=== PATIENT | female | born 2005 | race Two or more races ===

== ENCOUNTER 2025-03-30 10:33 | Outpatient (OUT) | payer MEDICAID, SELFPAY ==
[2025-03-30 12:47] LABS: Hematocrit 32.8 % (36.0-48.0); Hemoglobin 11.1 g/dL (12.0-16.0); Immature Granulocytes Abs Auto 0.03 10^3/uL (0.00-0.03); Immature Granulocytes Pct Auto 0.4 % (0.0-0.5); Lymphocytes Absolute Auto 2.0 10^3/uL (1.2-3.8); Mean Corpuscular HGB Conc 33.8 g/dL (29.9-35.2); Mean Corpuscular Hemoglobin 29.5 pg (26.7-34.0); Mean Corpuscular Volume 87.2 fL (81.0-99.0); Platelet Count 308 10^3/uL (150-450); Red Blood Count 3.76 10^6/uL (4.20-5.40); White Blood Count 8.1 10^3/uL (4.0-11.0)
[2025-03-30 13:01] LABS: Glucose 1 Hour 96 mg/dL (<130)
== END 2025-03-30 10:34 | disposition home or self-care (01) ==
LOC: LAB 10:38
PROVIDERS: PCP Internal Medicine; Visit Provider Physician Assistant
DX: Z13.1 Encounter for screening for diabetes mellitus (principal)
CPT/HCPCS: 36415; 82950; 85025

== ENCOUNTER 2025-04-10 15:33 | Outpatient (OUT) | payer MEDICAID, SELFPAY ==
[2025-04-10 16:25] LABS: Cannabinoid Screen Urine NEGATIVE (NEGATIVE); Methamphetamines Screen Urine NEGATIVE (NEGATIVE); Tricyclic Antidepressant Urine NEGATIVE (NEGATIVE)
[2025-04-11 05:07] LABS: Rubella Antibodies, IgG 1.76 index (Immune >0.99)
[2025-04-11 12:09] LABS: Rapid Plasma Reagin, Quant Non Reactive titer (NonRea<1:1)
== END 2025-04-10 15:34 | disposition home or self-care (01) ==
PROVIDERS: PCP Internal Medicine; Visit Provider Obstetrics & Gynecology
DX: Z34.01 Encounter for supervision of normal first pregnancy, first trimester (principal); N92.6 Irregular menstruation, unspecified
CPT/HCPCS: 36415; 80307; 83036; 86592; 86762; 86803; 86850; 86900; 86901; 87086; 87340; 87389

== ENCOUNTER 2025-06-01 18:53 | Outpatient (REF) | payer MEDICAID, SELFPAY ==
--- OUTSIDE RECORDS SUMMARY | 2025-05-24 10:50 | XMS_ITS | Encounter Summary ---
Author Organization [facility] Address [address] [place] [address] Care Team Providers Care Chief Wheelage Clerk Name Role Phone Anthony Stauffer MD Primary Care Provider [phone] Reason for Visit * ReasonCommentsRoutine Visit Encounter Details DateTypeDepartmentCare Team (Latest Contact Info)Sljzhddivqc81/03/2025 10:50 AM ESTRoutine [facility] [address] [place] [address] Mega Hogan DO [address] [place] [address] Intractable headache, unspecified chronicity pattern, unspecified headache type (Primary Dx); Third trimester ([facility]); 35 weeks gestation of ([facility]) Social History Tobacco UseTypesPacks/DayYears UsedDateSmoking Tobacco: Never Assessed Estimated Date of IylwvaanHdleylfoSgl98/06/2026ased on UltrasoundSex and Gender InformationValueDate RecordedSex Assigned at BirthNot on fileLegal SexFemale 10/13/2023 11:10 AM EDTGender IdentityNot on fileSexual OrientationNot on file documented as of this encounter Last Filed Vital Signs Vital SignReadingTime TakenCommentsBlood Ulyljahe001/7405/24/2025 11:02 AM EST Pulse--Temperature--Respiratory Rate--Oxygen Saturation--Inhaled Oxygen Concentration--Lzqkqt24.7 kg (189 lb)05/24/2025 11:02 AM ESTHeight--Body Mass Index29.606 2:25 PM EDTdocumented in this encounter Progress Notes * Tiara Escamilla NP - 05/24/2025 10:50 AM EST Reason for Appointment: Patient ID: Juliet Arthur is a 19 y.o. female who presents for Routine Visit Patient presents today for Return OB appointment. MEDICATIONS Current Outpatient Medications Medication Instructions metoclopramide (REGLAN) 10 mg, Oral, 3 times daily before meals, Take 1 tablet by mouth 30 minutes prior to meals 3 times daily as needed for nausea. ALLERGIES No Known Allergies PROBLEMS Active Ambulatory Problems Diagnosis Date Noted No Active Ambulatory Problems Resolved Ambulatory Problems Diagnosis Date Noted No Resolved Ambulatory Problems No Additional Past Medical History HISTORY PAST MEDICAL HISTORY SOCIAL HISTORY No past medical history on file. Social History Tobacco Use Smoking status: Not on file Smokeless tobacco: Not on file Substance Use Topics Alcohol use: Not on file Drug use: Not on file FAMILY HISTORY No family history on file. SURGICAL HISTORY History reviewed. No pertinent surgical history. REVIEW OF SYSTEMS Review of Systems: Review of Systems Constitutional: Negative. HENT: Negative. Intermittent headache since becoming Eyes: Negative. Respiratory: Negative. Cardiovascular: Negative. Gastrointestinal: Negative. Genitourinary: Negative. Musculoskeletal: Negative. Skin: Negative. Neurological: Negative. Psychiatric/Behavioral: Negative. Hematological: Negative. Endocrine: Negative. Allergic/Immunologic: Negative. OBJECTIVE Objective: Physical Exam Constitutional: Appearance: Normal appearance. She is well-developed. Cardiovascular: Rate and Rhythm: Normal rate and regular rhythm. Pulmonary: Effort: Pulmonary effort is normal. Breath sounds: Normal breath sounds. Abdominal: General: Bowel sounds are normal. There is no distension. Palpations: Abdomen is soft. Tenderness: There is no abdominal tenderness. There is no guarding or rebound. Musculoskeletal: General: No swelling. Normal range of motion. Right lower leg: No edema. Left lower leg: No edema. Neurological: Mental Status: She is alert and oriented to person, place, and time. Skin: General: Skin is warm and dry. Psychiatric: Mood and Affect: Mood normal. Behavior: Behavior normal. Vitals and nursing note reviewed. Exam conducted with a jack winder present. Vitals: Estimated body mass index is 29.6 kg/m?? as calculated from the following: Height as of 12/08/24: 5' 7 . Weight as of this encounter: 189 lb. BP: 128/74 Patient's last menstrual period was 08/28/2024. Assessment/Plan ICD-10-CM 1. Third trimester ([facility]) Z34.93 2. 35 weeks gestation of ([facility]) Z3A.35 POCT urinalysis dipstick manually resulted Assessment/Plan Return OB: Patient presents today for a routine obstetrics appointment. Patient is currently 35w1d . Patient states she is doing well but has complaints of being tired due to current . Patient has verbalizes frequent movement. labor precautions was discussed/given and patient was instructed to perform kick counts three times a day. Orders Placed This Encounter Procedures POCT urinalysis dipstick manually resulted Follow Up: Patient is to return to office in 1 week for routine OB appointment. Documented by Tiara Escamilla NP on behalf of: Mega Hogan DO documented in this encounter Plan of Treatment DateTypeDepartmentCare Team (Latest Contact Info)Xabnwilzkzp65/15/2025 3:10 PM ESTRoutine [facility] [address] [place] [address] Mega Hogan DO [address] [place], [place] [id number] documented as of this encounter Procedures Procedure NamePriorityDate/TimeAssociated DiagnosisCommentsPOCT URINALYSIS IJGOFRFNVztrujs40/03/2025 11:03 AM EST 35 weeks gestation of ([facility]) documented in this encounter Results * POCT urinalysis dipstick manually resulted (05/24/2025 11:03 AM EST)Component ValueRef RangeTest MethodAnalysis TimePerformed AtPathologist SignatureColor, UAYellowClarity, UAClearGlucose, UANegativeNegative - 2000(110) ++++ mg/dL Bilirubin, UANegativeNegative - 4(70) +++ mg/dLKetones, UANegativeNegative - 160(16) ++++ mg/dLSpec Grav, UA1.0101 - 1.03Blood, UANegativeNegative - 50 Cristofer/mcLpH, UA6.55 - 9Protein, UANegativeNegative - 2000(20) ++++ mg/dL Urobilinogen, UA1.00.2 - 12 mg/dLLeukocytes, UANegativeNegative - 500+++ Eladio/mcLNitrite, UANegativeNegative - PositiveSpecimen (Source)Anatomical Location / LateralityCollection Method / VolumeCollection TimeReceived Time Urine05/24/2025 11:03 AM EST Narrative Authorizing ProviderResult TypeResult StatusCorey Samira DOPOINT OF CARE TEST ENTER/EDIT ORDERABLESFinal Result documented in this encounter Visit Diagnoses Diagnosis Intractable headache, unspecified chronicity pattern, unspecified headache type- Primary Third trimester ([facility]) state, incidental 35 weeks gestation of ([facility]) documented in this encounter Care Teams Team MemberRelationshipSpecialtyStart DateEnd Date Anthony Stauffer MD [address] [place] [address], [address] [place] [address] PCP - GeneralFamily Medicine12/08/24documented as of this encounter
--- OUTSIDE RECORDS SUMMARY | 2025-06-01 15:20 | XMS_ITS | Encounter Summary ---
Author Organization [facility] Address [address] [place] [address] Care Team Providers Care Press Operator Automatic Name Role Phone Anthony Stauffer MD Primary Care Provider [phone] Reason for Visit * ReasonCommentsRoutine Visit Encounter Details DateTypeDepartmentCare Team (Latest Contact Info)Agzerpopqdw02/11/2025 3:20 PM ESTRoutine [facility] [address] [address] Tiara Escamilla NP [address] [place] [address] Third trimester ([facility]); 36 weeks gestation of ([facility]); Nausea Social History Tobacco UseTypesPacks/DayYears UsedDateSmoking Tobacco: Never Assessed Estimated Date of TblshbkgJheexpaxYee70/06/2026ased on UltrasoundSex and Gender InformationValueDate RecordedSex Assigned at BirthNot on fileLegal SexFemale 10/13/2023 11:10 AM EDTGender IdentityNot on fileSexual OrientationNot on file documented as of this encounter Last Filed Vital Signs Vital SignReadingTime TakenCommentsBlood Bxkkwzsz022/6006/01/2025 3:47 PM EST Pulse--Temperature--Respiratory Rate--Oxygen Saturation--Inhaled Oxygen Concentration--Psdbkk48.1 kg (189 lb 12 oz)06/01/2025 3:47 PM ESTHeight--Body Mass Index29.72012/08/2024 2:25 PM EDTdocumented in this encounter Progress Notes * Tiara Escamilla NP - 06/01/2025 3:20 PM EST Reason for Appointment: Patient ID: Juliet Arthur is a 19 y.o. female who presents for Routine Visit Patient presents today for Return OB appointment. MEDICATIONS Current Outpatient Medications Medication Instructions magnesium oxide (MAG-OX) 400 mg, Oral, Daily metoclopramide (REGLAN) 10 mg, Oral, 3 times [...] No family history on file. SURGICAL HISTORY No past surgical history on file. REVIEW OF SYSTEMS Review of Systems: Review of Systems Constitutional: Negative. HENT: Negative. Eyes: Negative. Respiratory: Negative. Cardiovascular: Negative. Gastrointestinal: Negative. Genitourinary: Negative. Musculoskeletal: Negative. Skin: Negative. Neurological: Negative. All other systems reviewed and are negative. Hematological: Negative. Endocrine: Negative. Allergic/Immunologic: Negative. OBJECTIVE Objective: Physical Exam Constitutional: Appearance: Normal appearance. She is well-developed. Genitourinary: Vulva normal. Cardiovascular: Rate and Rhythm: Normal rate and [...] nursing note reviewed. Exam conducted with a golf course mechanic present. Vitals: Estimated body mass index is 29.72 kg/m?? as calculated from the following: Height as of 12/08/24: 5' 7 . Weight as of this encounter: 189 lb 12 oz. BP: 120/60 Patient's last menstrual period was 08/28/2024. Assessment/Plan ICD-10-CM 1. Third trimester ([facility]) Z34.93 POCT urinalysis dipstick manually resulted CULTURE, GROUP B STREP WITH SUSCEPTIBLITY CULTURE, GROUP B STREP WITH SUSCEPTIBLITY 2. 36 weeks gestation of ([facility]) Z3A.36 3. Nausea R11.0 metoclopramide (Reglan) 10 MG tablet Assessment/Plan Return OB: Patient presents today for a routine obstetrics appointment. Patient is currently 36w2d . Patient states she is doing well but has complaints of being tired due to current . Patient has verbalizes frequent movement. labor precautions was discussed/given and patient was instructed to perform kick counts three times a day. Orders Placed This Encounter Procedures CULTURE, GROUP B STREP WITH SUSCEPTIBLITY POCT urinalysis dipstick manually resulted Follow Up: Patient is to return to office in 2 week for routine OB appointment. Documented by Tiara Escamilla NP on behalf of: Tiara Escamilla NP documented in this encounter Plan of Treatment DateTypeDepartmentCare Team (Latest Contact Info)Bqxqrufaagm40/15/2025 3:10 PM ESTRoutine [facility] [address] [phone] Mega Hogan, [address] [place] [address] NameTypePriorityAssociated DiagnosesOrder ScheduleCULTURE, GROUP B STREP WITH SUSCEPTIBLITYLabRoutine Third trimester ([facility]) Expected: 06/01/2025, Expires: 06/01/2026documented as of this encounter Procedures Procedure NamePriorityDate/TimeAssociated DiagnosisCommentsPOCT URINALYSIS PXQFLVVJKjynsbx84/11/2025 4:11 PM EST Third trimester ([facility]) documented in this encounter Results * (ABNORMAL) POCT urinalysis dipstick manually resulted (06/01/2025 4:11 PM EST) ComponentValueRef RangeTest MethodAnalysis TimePerformed AtPathologist SignatureColor, UAYellowClarity, UAClearGlucose, UANegativeNegative - 2000(110) ++++ mg/dLBilirubin, UANegativeNegative - 4(70) +++ mg/dLKetones, UA NegativeNegative - 160(16) ++++ mg/dLSpec Grav, UA1.0151 - 1.03Blood, UA NegativeNegative - 50 Cristofer/mcLpH, UA6.05 - 9Protein, UAPositiveNegative - 2000(20) ++++ mg/dLComment:TraceUrobilinogen, UA0.20.2 - 12 mg/dLLeukocytes, UANegativeNegative - 500+++ Eladio/mcLNitrite, UANegativeNegative - Positive Specimen (Source)Anatomical Location / LateralityCollection Method / Volume Collection TimeReceived SgdcYkgtd77/11/2025 4:11 PM EST Narrative Authorizing ProviderResult TypeResult StatusTiara Escamilla NPPOINT OF CARE TEST ENTER/EDIT ORDERABLESFinal Result documented in this encounter Visit Diagnoses Diagnosis Third trimester ([facility]) state, incidental 36 weeks gestation of ([facility]) Nausea Nausea alone documented in this encounter Care Teams Team MemberRelationshipSpecialtyStart DateEnd Date Anthony Stauffer MD [address] [place] [address], [address] [place] [address] PCP - GeneralFamily Medicine12/08/24documented as of this encounter
--- OUTSIDE RECORDS SUMMARY | 2025-06-01 18:58 | XMS_ITS | Clinical Summary ---
Author Organization [facility] [employer] [facility] tem Address [id number] [address] [place] [address] Care Team Providers Care Staff Combat Information Center Officer Name Role Phone Anthony Stauffer MD Primary Care Provider [phone] Allergies No known active allergies Medications MedicationSigDispense QuantityRefillsLast FilledStart DateEnd DateStatus norethindrone-e.estradioL-iron (07/11) 1 mg-20 mcg (21)/75 mg (7) per tablet Take 1 tablet by mouth in the morning. 28 tablet 11107/25/2023ctive 115/iron/folic acid ( 19 ORAL) Take by mouth.Active Active Problems ProblemNoted DateDiagnosed DateHSV (herpes simplex virus) anogenital infection 04/21/2024 Overview (04/21/2024): 04/20/24 (+) HSV 1 TonsillitisEstimated Date of BgmcyjygXdserfzeVrp30/06/2026ased on last menstrual period of 09/20/2024 Encounters DateTypeDepartmentCare YazuLdhocnczstj07/11/2025 2:13 PM EDT - 04/01/2025 5:11 PM EDTHospital Encounter [facility] [address] [place] [phone] Alexis Stanford MD Discharge Disposition: Home04/01/2025 - 04/01/2025 2:10 PM EDTEmergency [facility] [address] [place] [address] Discharge Disposition: ED Dismiss - Diverted Elsewherefrom Last 3 Months Social History Tobacco UseTypesPacks/DayYears UsedDateSmoking Tobacco: NeverSmokeless Tobacco: Never Tobacco Cessation:Counseling Given: Not Answered Alcohol UseStandard Drinks/WeekCommentsNever0 (1 standard drink = 0.6 oz pure alcohol)[facility] UtilitiesAnswerDate RecordedIn the past 12 months has the [employer], [employer], oil, or water [employer] threatened to shut off services in your home?No 5AUDIT-CAnswerDate RecordedQ1: How often do you have a drink containing alcohol?Never05/08/2020Average Number of DrinksNot on file05/08/2020Frequency of Binge DrinkingNot on file05/08/2020PHQ-2AnswerDate RecordedTotal Score0 2PRAPARE - TransportationAnswerDate RecordedIn the past 12 months, has lack of transportation kept you from medical appointments or from getting medications?No04/01/2025In the past 12 months, has lack of transportation kept you from meetings, work, or from getting things needed for daily living?No 04/01/2025Housing InstabilityAnswerDate RecordedAre you worried or concerned that in the next two months you may not have stable housing that you own, rent or stay in as a part of a household?No5ChildcareAnswerDate Recorded LptwxkxamMborwkq29/10/2020EmploymentAnswerDate RecordedEmploymentUnknown 05/01/2020Hunger ScreeningAnswerDate RecordedWithin the past 12 months we worried whether our food would run out before we got money to buy more.Never True04/01/2025Within the past 12 months the food we bought just didn't last and we didn't have money to get more.Never True04/01/2025Purpose - LifeAnswerDate RecordedPurpose and direction in xlgtXvarlik53/02/2021Estimated Date of UtdklihyJmvvmudgRsz23/06/2026Based on last menstrual period of 09/20/2024Sex and Gender InformationValueDate RecordedSex Assigned at BirthNot on fileLegal Sex Cxegmo8701/23/2015 12:51 PM EDTGender IdentityNot on fileSexual OrientationNot on file Last Filed Vital Signs Vital SignReadingTime TakenCommentsBlood Ytbdnwpm381/511 2:13 PM EDT Xkgoe63690/11/2025 2:13 PM HUDZfxngedfppp97.9 ??C (98.5 ??F)04/01/2025 2:13 PM EDTRespiratory Kkve6922 2:13 PM EDTOxygen Qcabbovngi440%04/01/2025 2:13 PM EDTInhaled Oxygen Concentration--Xfrnlg08.9 kg (138 lb 10.7 oz)04/01/2025 2:27 PM HQKQivgvn442.2 cm (5' 7 )04/01/2025 2:27 PM EDTBody Mass Index21.72 04/01/2025 2:27 PM EDT Plan of Treatment Health MaintenanceDue DateLast DoneCommentsChlamydia Iwzstvbic08/11/2005 Depression Pqxzouqne06/11/2017Influenza Vdrxelv2002/20/2025RSV ( or age 60+ yrs) (1 - Risk 1-dose series)05/02/2025Tobacco Emuimmtxu99/20/2025 05/11/2024dult BMI Dnagojylg03DTaP,Tdap and Td Vaccines (6 - Td or Tdap), 03/09/2009, 01/15/2005, Additional history exists Medical Devices Not on file Procedures Procedure NamePriorityDate/TimeAssociated DiagnosisCommentsCBC WITH AUTO GGHPTQPJQWRWOPXY93/11/2025 3:24 PM EDT BHIJMCLVVRFCCU63/11/2025 3:15 PM EDT URINE LGKWKPDJsqnegu94/11/2025 3:15 PM EDT from Last 3 Months Results * (ABNORMAL) CBC auto differential (04/01/2025 3:24 PM EDT)ComponentValueRef RangeTest MethodAnalysis TimePerformed AtPathologist SignatureWBC8.14 - 11 x10E9/L1 3:35 PM EDTPMCCULLOUGH-HYDE MEMORIAL HOSPITALRBC Count4.06 3.8 - 5.2 X10E12/L1 3:35 PM EDSCCI [facility] Qbabdnofkg72.6(L)11.7 - 15.5 g/dL04/01/2025 3:35 PM EDTPMCCULLOUGH-HYDE MEMORIAL HOSPITALHematocrit34.7(L)35 - 47 %04/01/2025 3:35 PM EDTPMCCULLOUGH-HYDE MEMORIAL HOSPITALMCV8680 - 100 fL04/01/2025 3:35 PM EDSCCI HOSPITAL LIMAMCH28.727 - 34 pg04/01/2025 3:35 PM EDSCCI HOSPITAL LIMAMCHC33.532 - 36 g/dL04/01/2025 3:35 PM EDTPMCCULLOUGH-HYDE MEMORIAL HOSPITALRDW12.511.5 - 15 %04/01/2025 3:35 PM EDSCCI HOSPITAL LIMAPlatelet Gjpbl538850 - 450 X10E9/L1 3:35 PM EDTPMCCULLOUGH-HYDE MEMORIAL HOSPITALMPV8.17 - 12 fL04/01/2025 3:35 PM EDT [facility]Neutrophils %68.8%04/01/2025 3:35 PM EDT [facility]ITALLymphocytes %24.6%04/01/2025 3:35 PM EDT [facility]ITALMonocytes %6.0%04/01/2025 3:35 PM EDT [facility]ITALEosinophils %0.4%04/01/2025 3:35 PM EDT [facility]ITALBasophils %0.2%04/01/2025 3:35 PM EDT [facility]ITALNeutrophils Absolute (A)5.51.5 - 6.6 10*3/uL04/01/2025 3:35 PM EDTPMCCULLOUGH-HYDE MEMORIAL HOSPITALLymphocytes Absolute2.01.0 - 3.5 10*3/uL04/01/2025 3:35 PM EDTPMCCULLOUGH-HYDE MEMORIAL HOSPITALMonocytes Absolute0.50.0 - 0.9 10*3/uL04/01/2025 3:35 PM EDTPMCCULLOUGH-HYDE MEMORIAL HOSPITALEosinophils Absolute0.00.0 - 0.4 10*3/uL04/01/2025 3:35 PM EDTPMCCULLOUGH-HYDE MEMORIAL HOSPITALBasophils Absolute0.00.0 - 0.2 10*3/uL04/01/2025 3:35 PM EDSCCI HOSPITAL LIMADifferential TypeAUTOMATED DZOKDBLJXGGW11/11/2025 3:35 PM EDMERCY [facility]ALTH TIFFIN HOSPITALpecimen (Source)Anatomical Location / LateralityCollection Method / VolumeCollection TimeReceived TimeBloodVenous blood / UnknownVenipuncture / Ysiwckp2904/01/2025 3:24 PM EDT1 3:27 PM EDT Narrative Authorizing ProviderResult TypeResult StatusTibjose Stanford MDLAB BLOOD ORDERABLESFinal ResultPerforming OrganizationAddressCity/State/ZIP CodePhone Number [facility] [address] [place] [address], * Urinalysis (04/01/2025 3:15 PM EDT)ComponentValueRef RangeTest MethodAnalysis TimePerformed AtPathologist DpzujyhwaETYIASviomnXcorwa71/11/2025 3:33 PM EDT [facility]ITALTURBIDITYClearClear04/01/2025 3:33 PM EDT [facility]ITALPECIFIC GRAVITY1.0151.003 - 1.035 04/01/2025 3:33 PM EDSCCI HOSPITAL LIMANITRITENegative Ngmpzogf84/11/2025 3:33 PM [facility]ITALPH,URINE8.5 5.0 - 8.510 3:33 PM EDSCCI HOSPITAL LIMALEUKOCYTE DJUEMMKAGspqbpcgSsjzdgfc76/11/2025 3:33 PM EDTPMCCULLOUGH-HYDE MEMORIAL HOSPITALPROTEINNegativeNegative04/01/2025 3:33 PM EDTPMCCULLOUGH-HYDE MEMORIAL HOSPITALKETONES (URINE)GqpzmwwbPoveahzt03/11/2025 3:33 PM EDT [facility]ITALUROBILINOGEN0.2 eu/dL0.2 eu/dL, 1.0 eu/dL 04/01/2025 3:33 PM EDTPMCCULLOUGH-HYDE MEMORIAL HOSPITALBILIRUBIN (URINE) NfimdfxyIozauvgc04/11/2025 3:33 PM EDSCCI [facility]OS[facility]ITAL [facility] BLOOD/ZCDPddkcaqbFqvrjjdx17/11/2025 3:33 PM EDSCCI HOSPITAL LIMAGLUCOSE (URINE)NegativeNegative, 250 mg/dL04/01/2025 3:33 PM EDT [facility]ITALpecimen (Source)Anatomical Location / LateralityCollection Method / VolumeCollection TimeReceived TimeUrineUrine specimen collection, clean catch / Oyliaau3304/01/2025 3:15 PM EDT1 3:28 PM EDT Narrative Authorizing ProviderResult TypeResult Trav Stanford MDURINE ORDERABLES Final ResultPerforming OrganizationAddressCity/State/ZIP CodePhone Number [facility] [address] [place] [address], [place] * Urine Culture Urine, Clean Catch Midstream (04/01/2025 3:15 PM EDT)Component ValueRef RangeTest MethodAnalysis TimePerformed AtPathologist SignatureCULTURE XXKSQIH84-159,000 ORGANISMS/mL NORMAL UROGENITAL FLORA04/02/2025 9:14 PM EDT [facility] LABORATORYSpecimen (Source)Anatomical Location / LateralityCollection Method / VolumeCollection TimeReceived TimeUrineUrine specimen collection, clean catch / Upboxtx8304/01/2025 3:15 PM EDT1 3:28 PM EDT Narrative Authorizing ProviderResult TypeResult Trav Stanford MDMICROBIOLOGY - GENERAL ORDERABLESFinal ResultPerforming OrganizationAddressCity/State/ZIP Code Phone Number [facility] [address] [place] [address], [place] [phone] from Last 3 Months Insurance Care Teams Team MemberRelationshipSpecialtyStart DateEnd Date Anthony Stauffer MD [address] [place] [address], [address] [place] [address] PCP - LauuwomNnkklbpxdj34/31/23
--- OUTSIDE RECORDS SUMMARY | 2025-06-01 18:59 | XMS_ITS | Encounter Summary ---
Author Organization [facility] Address [address] [place] [address] Care Team Providers Care Carpenter Refrigerator Name Role Phone Anthony Stauffer MD Primary Care Provider [phone] Encounter Details DateTypeDepartmentCare Team (Latest Contact Info)Ygqlcipokgl07/11/2025Travel Social History Tobacco UseTypesPacks/DayYears UsedDateSmoking Tobacco: Never Assessed Estimated Date of DodecwsgHtjlmjnhUpv16/06/2026Based on UltrasoundSex and Gender InformationValueDate RecordedSex Assigned at BirthNot on fileLegal SexFemale 10/13/2023 11:10 AM EDTGender IdentityNot on fileSexual OrientationNot on file documented as of this encounter Plan of Treatment DateTypeDepartmentCare Team (Latest Contact Info)Dkqmtiydnyv84/15/2025 3:10 PM ESTRoutine [facility] [address] [facility] [place] [phone] Mega Hogan DO [address] [facility] [address] [place], [facility]11 documented as of this encounter Visit Diagnoses Not on filedocumented in this encounter Care Teams Team MemberRelationshipSpecialtyStart DateEnd Date Anthony Stauffer MD [address] [place] [address], [address] [place] [id number] PCP - GeneralFamily Medicine12/08/24documented as of this encounter
--- OUTSIDE RECORDS SUMMARY | 2025-06-01 18:59 | XMS_ITS | Encounter Summary ---
Author Organization [facility] Address [address] [place] [address] Care Team Providers Care Filter Press Tender Head Name Role Phone Anthony Stauffer MD Primary Care Provider [phone] Encounter Details DateTypeDepartmentCare Team (Latest Contact Info)Lgzfnvljhwa80/11/2025amboo flowsheet RICHARD SALOMON [address] [place] [address] Tiara Escamilla, FLIGHT TEACHER [address] [place] [address] Social History Tobacco UseTypesPacks/DayYears UsedDateSmoking Tobacco: Never Assessed Estimated Date of MwtubffhWrmtixgtMxw64/06/2026Based on UltrasoundSex and Gender InformationValueDate RecordedSex Assigned at BirthNot on fileLegal SexFemale 10/13/2023 11:10 AM EDTGender IdentityNot on fileSexual OrientationNot on file documented as of this encounter Plan of Treatment DateTypeDepartmentCare Team (Latest Contact Info)Nuzzidkgelf27/15/2025 3:10 PM ESTRoutine NOMMary [facility]ON [address] [place] [address] Mega Hogan DO [address] [facility] [address] [place], [place] [phone] documented as of this encounter Visit Diagnoses Not on filedocumented in this encounter Care Teams Team MemberRelationshipSpecialtyStart DateEnd Date Anthony Stauffer MD [address] [place] [address], [address] [place] [address] PCP - GeneralFamily Medicine12/08/24documented as of this encounter
--- OUTSIDE RECORDS SUMMARY | 2025-06-01 18:59 | XMS_ITS | Encounter Summary ---
Author Organization [facility] Address [address] [place] [address] Care Team Providers Care Medical Auditor Name Role Phone Anthony Stauffer MD Primary Care Provider [phone] Encounter Details DateTypeDepartmentCare Team (Latest Contact Info)Shfquzjnvys36/03/2025amboo flowsheet NOM[facility] SALOMON [address] [place] [address] [place] [phone] Mega Hogan DO [address] [place] [address] [address] [place], [place] [id number] Social History Tobacco UseTypesPacks/DayYears UsedDateSmoking Tobacco: Never Assessed Estimated Date of DgkaehygEijdbcakWzr72/06/2026Based on UltrasoundSex and Gender InformationValueDate RecordedSex Assigned at BirthNot on fileLegal SexFemale 10/13/2023 11:10 AM EDTGender IdentityNot on fileSexual OrientationNot on file documented as of this encounter Plan of Treatment DateTypeDepartmentCare Team (Latest Contact Info)Iitxmqxmwow21/15/2025 3:10 PM ESTRoutine [facility] [address] [facility] [place] [phone] Mega Hogan DO [facility] [place], [place] [id number] documented as of this encounter Visit Diagnoses Not on filedocumented in this encounter Care Teams Team MemberRelationshipSpecialtyStart DateEnd Date Anthony Stauffer MD [address] [place] [address], [address] [place] [address] PCP - GeneralFamily Medicine12/08/24documented as of this encounter
--- OUTSIDE RECORDS SUMMARY | 2025-06-01 19:01 | XMS_ITS | Clinical Summary ---
Author Organization [facility] Address [address] [place] [address] Care Team Providers Care Staff Forester Name Role Phone Unavailable Primary Care Provider Unavailabl e Social History Tobacco UseTypesPacks/DayYears UsedDateSmoking Tobacco: Never Assessed CommentsUnknownSex and Gender InformationValueDate RecordedSex Assigned at Not on fileLegal HsmVabggc03/30/2022 12:27 AM EDTGender IdentityNot on file Sexual OrientationNot on file Plan of Treatment Not on file
--- OUTSIDE RECORDS SUMMARY | 2025-06-01 19:01 | XMS_ITS | Clinical Summary ---
Author Organization [facility] Healthcare Address [address] [place] [address] Care Team Providers Care Detective [employer] Name Role Phone Anthony Stauffer MD Primary Care Provider [phone] Allergies No known active allergies Medications MedicationSigDispense QuantityRefillsLast FilledStart DateEnd DateStatus magnesium oxide (Mag-Ox) 400 MG tablet Indications:Intractable headache, unspecified chronicity pattern, unspecified headache typeTake 1 tablet (400 mg) by mouth Daily 30 tablet ctive metoclopramide (Reglan) 10 MG tablet Indications:NauseaTake 1 tablet (10 mg) by mouth in the morning and 1 tablet (10 mg) at noon and 1 tablet (10 mg) in the evening. Take before meals. Take 1 tablet by mouth 30 minutes prior to meals 3 times daily as needed for nausea. 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 Take before meals. Take 1 tablet by mouth 30 minutes prior to meals 3 times daily as needed for nausea. 90 tablet Discontinued(Reorder) Encounters DateTypeDepartmentCare QbtpZcazcbtroud09/11/2025 3:20 PM ESTRoutine NOMS Cherie Willoughby [facility] [place] [address] Tiara Escamilla NP Third trimester ([facility]); 36 weeks gestation of ([facility]); Huuubu4106/01/2025amboo flowsheet [facility] Cherie Willoughby [facility] [place] [address] Tiara Escamilla NP 06/01/20252576Odzohk98/03/2025 10:50 AM ESTRoutine N[facility] Cherie Willoughby [facility] [place] [address] Mega Hogan DO Intractable headache, unspecified chronicity pattern, unspecified headache type (Primary Dx); Third trimester ([facility]); 35 weeks gestation of ([facility])05/24/2025amboo flowsheet N[facility] Cherie Willoughby [facility] [place] [address] Mega Hogan DO 05/04/2025 2:50 PM ESTRoutine N[facility] Cherie Willoughby [facility] [place] [address] Tiara Escamilla NP Nausea (Primary Dx)05/04/2025 2:30 PM ESTAncillary Procedure N[facility] Cherie Willoughby [facility] [place] [address] size inconsistent with dates ([facility])04/18/2025bstract [facility] [place] [facility] [address] [place] [address] Lisy Shi LPN 04/17/2025 10:00 AM EDTRoutine NOM[facility] [address] [facility] [place] [address] Mega Hogan, DO size inconsistent with dates ([facility]) (Primary Dx); Third trimester ([facility]); 29 weeks gestation of ([facility]); PCR positive for herpes simplex virus type 1 (HSV-1) DNA04/17/2025bstract [facility] [address] [facility] [place] [address] Mega Hogan, DO 04/17/2025amboo flowsheet N[facility] Cherie Willoughby [facility] [place] [address] Mega Hogan, DO 04/14/2025Patient Outreach N[facility] [address] [place] [address] Lisy Shi LPN 5Clinisync Result Encounter NOMS External Department Unsolicited Mega Hogan, DO 04/10/2025bstract N[facility]Marg[facility] [address] [place] [address] [place] [address] Mega Hogan, DO 04/10/2025bstract [facility] [address] [facility] [place] [address] Mega Hogan, DO 04/03/2025 11:20 AM EDTRoutine NOMS Cherie [place] [address] Mega Hogan, DO Second trimester ([facility]); 27 weeks gestation of ([facility]); Other constipation; Nausea and vomiting, unspecified vomiting type04/03/2025amboo flowsheet N[facility] Cherie Willoughby [facility] [place] [address] Mega Hogan DO 5Clinisync Result Encounter NOMS External Department Unsolicited Lisy Kerr PA from Last 3 Months Social History Tobacco UseTypesPacks/DayYears UsedDateSmoking Tobacco: Never Assessed Estimated Date of MkgkszamLvoyxgcxXre43/06/2026Based on UltrasoundSex and Gender InformationValueDate RecordedSex Assigned at BirthNot on fileLegal SexFemale 10/13/2023 11:10 AM EDTGender IdentityNot on fileSexual OrientationNot on file Last Filed Vital Signs Vital SignReadingTime TakenCommentsBlood Cutgatwg705/6006/01/2025 3:47 PM EST Ewtke973510/13/2023 12:29 PM EDTTemperature--Respiratory Rate--Oxygen Saturation 99%10/13/2023 12:29 PM EDTInhaled Oxygen Concentration--Tirlru36.1 kg (189 lb 12 oz)06/01/2025 3:47 PM GYJWccerv585.2 cm (5' 7 )12/08/2024 2:25 PM EDTBody Mass Index29.72012/08/2024 2:25 PM EDT Plan of Treatment DateTypeDepartmentCare Team (Latest Contact Info)Clqxpgielap09/15/2025 3:10 PM ESTRoutine NOMS Cherie SALOMON [address] [facility] [place] [address] Mega Hogan, [address] [place] [address] Procedures Procedure NamePriorityDate/TimeAssociated DiagnosisCommentsPOCT URINALYSIS MXKOEUNPMghjlhl70/11/2025 4:11 PM EST Third trimester ([facility]) POCT URINALYSIS OESREQIMDzgcepv24/03/2025 11:03 AM EST 35 weeks gestation of ([facility]) US OB FOLLOW UP TRANSABDOMINAL XJYBDBKIHzctlrl67/13/2025 3:36 PM EST size inconsistent with dates ([facility]) POCT URINALYSIS GITQMLYBFstehcz47/28/2025 2:44 PM EDT 29 weeks gestation of ([facility]) URINE CULTURE, TWFEKRSTeryrqi31/20/2025 4:07 PM EDT [facility] DRUG SCREEN RAPID (URINE)Zltmepp8904/10/2025 4:07 PM EDT HBSAG WPEMWQLxrtvuy77/20/2025 4:01 PM EDT RAPID PLASMA REAGIN, TJDJZTiueyze37/20/2025 4:01 PM EDT HIV AB/P24 AG WITH JBZRUUKuqklhj85/20/2025 4:01 PM EDT HCV ANTIBODY RFX TO QUANT AXVIkprklv84/20/2025 4:01 PM EDT ALL RUBELLA IGG WOFngyvtc28/20/2025 4:01 PM EDT MLR HEMOGLOBIN P5XBcwgmyb51/20/2025 4:01 PM EDT ALL TYPE AND BORODYSqilkri34/20/2025 4:01 PM EDT POCT URINALYSIS CDOAVKAOVszdxws15/13/2025 11:41 AM EDT 27 weeks gestation of ([facility]) GLUCOSE 1 WJHTNdrefex07/09/2025 11:45 AM EDT ALL CBC WITH AUTO QLSXQzabrqj22/09/2025 11:45 AM EDT from Last 3 Months Results * (ABNORMAL) POCT urinalysis dipstick manually resulted (06/01/2025 4:11 PM EST) Only the most recent of4 resultswithin the time period is included. ComponentValueRef RangeTest MethodAnalysis TimePerformed AtPathologist Signature Color, UAYellowClarity, UAClearGlucose, UANegativeNegative - 2000(110) ++++ mg/dLBilirubin, UANegativeNegative - 4(70) +++ mg/dLKetones, UANegativeNegative - 160(16) ++++ mg/dLSpec Grav, UA1.0151 - 1.03Blood, UANegativeNegative - 50 Cristofer/mcLpH, UA6.05 - 9Protein, UAPositiveNegative - 2000(20) ++++ mg/dLComment: TraceUrobilinogen, UA0.20.2 - 12 mg/dLLeukocytes, UANegativeNegative - 500+++ Eladio/mcLNitrite, UANegativeNegative - PositiveSpecimen (Source)Anatomical Location / LateralityCollection Method / VolumeCollection TimeReceived TimeUrine 06/01/2025 4:11 PM EST Narrative Authorizing ProviderResult TypeResult StatusTiara Escamilla POINT OF CARE TEST ENTER/EDIT ORDERABLESFinal Result * US OB follow up transabdominal approach (05/04/2025 3:36 PM EST)Anatomical RegionLateralityModalityBodyUltrasoundSpecimen (Source)Anatomical Location / LateralityCollection Method / VolumeCollection TimeReceived Time05/10/2025 10:19 AM EST Impressions 05/10/2025 10:30 AM EST 1. Single, live intrauterine , current sonographic age of 32 weeks and 0 days, with an estimated date of delivery of June 29, 2025. 2. ??Comparison made with prior examination of February 07, 2025 ??the weight percentile at that time was 45% and delivery date was June 27, 2025. * ??Estimated Weight (g) by Percentile is based upon an accurate estimated age based onlast menstrual period. ?? TRANSCRIBED BY: ? ELECTRONICALLY SIGNED BY: Dwayne Adams MD Narrative 05/10/2025 10:30 AM EST FINDINGS: A single, live intrauterine is present with normal cardiac rate of 134 ??beats per minute. Normal activity and amniotic fluid volume. Amniotic fluid index is 18 ??cm. ??Morphology is grossly normal. The current sonographic age is 32 weeks and 0 days, based on the following measurements: BPD ? 8.2 cm ( 33 ??weeks, 0 days) Head Circumference ?28.7cm (31 weeks, 4 days) Abdominal Circumference ?28.4cm ( 32 weeks,3 ??days) Femur Length ?5.9 cm (30 weeks, 5 days) Presentation ? Cephalic ? Weight (g) by Percentile ??27.1 % * These measurements result in an estimated date of delivery of June 29, 2025 ?The current estimated weight is ??1857 ??grams (4 ??pound, 2 ??ounces). ?? Procedure Note Dwayne Adams MD - 05/10/2025 FINDINGS: A single, live intrauterine is present with normal cardiacrate of 134 beats per minute. Normal activity and amniotic fluidvolume. Amniotic fluid index is 18 cm. Morphology is grossly normal. Thecurrent sonographic age is 32 weeks and 0 days, based on the followingmeasurements: BPD 8.2 cm ( 33 weeks, 0 days) Head Circumference 28.7cm (31 weeks, 4 days) Abdominal Circumference 28.4cm ( 32 weeks,3 days) Femur Length 5.9 cm (30 weeks, 5 days) Presentation Cephalic Weight (g) by Percentile 27.1 % * These measurements result in an estimated date of delivery of June The current estimated weight is 1857 grams (4 pound, 2ounces). IMPRESSION: 1. Single, live intrauterine , current sonographic age of 32weeks and 0 days, with an estimated date of delivery of June 29, 2025. 2. Comparison made with prior examination of February 07, 2025 the fetalweight percentile at that time was 45% and delivery date was June. * Estimated Weight (g) by Percentile is based upon an accurateestimated age based on last menstrual period. TRANSCRIBED BY: ELECTRONICALLY SIGNED BY: Dwayne Adams MD Authorizing ProviderResult TypeResult StatusShavonyohana Francine NPIMG OB US PROCEDURESFinal Result * URINE CULTURE, ROUTINE (04/10/2025 4:07 PM EDT)ComponentValueRef RangeTest MethodAnalysis TimePerformed AtPathologist SignatureURINE CULTURE, ROUTINE ??Urine Culture, Routine TBHURINE CULTURE, ROUTINEMixed urogenital floraTBHURINE CULTURE, UBJODOC40,000- 25,000 colony forming units per mLTBHURINE CULTURE, ROUTINEPerformed at: [facility] LabPaul Oliver Memorial HospitalTBHURINE CULTURE, [id number] [place], [place] [id number] URINE CULTURE, ROUTINELab Director: Shin Mckeon PhD, Phone: [phone] Specimen (Source)Anatomical Location / LateralityCollection Method / Volume Collection TimeReceived Time04/10/2025 4:07 PM EDT1 4:07 PM EDT Narrative [facility] - 04/11/2025 9:12 PM EDT Authorizing ProviderResult TypeResult StatusCoredeirdre Samira DOL BLOOD ORDERABLES Final ResultPerforming OrganizationAddressCity/State/ZIP CodePhone Number [facility] * [facility] DRUG SCREEN RAPID (URINE) (04/10/2025 4:07 PM EDT)ComponentValueRef Range Test MethodAnalysis TimePerformed AtPathologist SignatureCANNABINOID SCREEN URINENEGATIVENEGATIVETBHPHENCYCLIDINE SCREEN URINENEGATIVENEGATIVETBHCOCAINE SCREEN URINENEGATIVENEGATIVETBHMETHAMPHETAMINES SCREEN URINENEGATIVENEGATIVE TBHOPIATE SCREEN URINENEGATIVENEGATIVETBHAMPHETAMINE SCREEN URINENEGATIVE NEGATIVETBHBENZODIAZEPINES SCREEN URINENEGATIVENEGATIVETBHTRICYCLIC ANTIDEPRESSANT URINENEGATIVENEGATIVETBHMETHADONE SCREEN URINENEGATIVENEGATIVE TBHBARBITURATES SCREEN URINENEGATIVENEGATIVETBHOXYCODONE SCREEN URINENEGATIVE NEGATIVETBHBUPRENORPHINE SCREEN URINENEGATIVENEGATIVETBHComment: DRUG CLASS TEST SYSTEM CUT-OFF CONCENTRATIONS ARE FOLLOWS: AMP (Amphetamine): 500 ng/mL BAR (Barbiturates): 200 ng/mL BZO (Benzodiazepines): 150 ng/mL BUP (Buprenorphine): 10 ng/mL MAKENZIE (Cocaine): 150 ng/mL mAMP (Methamphetamine): 500 ng/mL MTD (Methadone): 200 ng/mL OPI (Opiates): 100 ng/mL OXY (Oxycodone): 100 ng/mL PCP (Phencyclidine): 25 ng/mL THC (Cannabinoids): 50 ng/mL TCA (Trycyclic Antidepressants): 300 ng/mL Specimen (Source)Anatomical Location / LateralityCollection Method / Volume Collection TimeReceived Time04/10/2025 4:07 PM EDT1 4:07 PM EDT N[facility]ative [facility] 04/10/2025 4:25 PM EDT Authorizing ProviderResult TypeResult StatusCorey Samira DOCLINISYNCFinal Result Performing OrganizationAddressCity/State/ZIP CodePhone Number [facility] * HBSAG SCREEN (04/10/2025 4:01 PM EDT)ComponentValueRef RangeTest Method Analysis TimePerformed AtPathologist SignatureHBSAG SCREENNegativeNegativeTBH Comment: Performed at: ??CB - [facility] [address] ??[id number] Panel Machine Operator: Shin Mckeon PhD, Phone: ??[phone] Specimen (Source)Anatomical Location / LateralityCollection Method / Volume Collection TimeReceived Time04/10/2025 4:01 PM EDT1 4:05 PM EDT Narrative [facility] - 04/11/2025 12:09 PM EDT Authorizing ProviderResult TypeResult StatusCorey Samira DOLAB BLOOD ORDERABLES Final ResultPerforming OrganizationAddressCity/State/ZIP CodePhone Number [facility] * RAPID PLASMA REAGIN, QUANT (04/10/2025 4:01 PM EDT)ComponentValueRef RangeTest MethodAnalysis TimePerformed AtPathologist SignatureRAPID PLASMA REAGIN, QUANT Non ReactiveNonRea<1:1 titerTBHComment: Please Note: This test does not meet current guidelines for screening and diagnosis of syphilis. This test is intended for following treatment response in patients being treated for syphilis infection. To screen for syphilis infection, a reflex cascade that includes both RPR and a treponema-specific assay should be utilized, such as Treponema pallidum (Syphilis) Screening [place] (113743) or Rapid Plasma Reagin (RPR) Test With Reflex to Quantitative RPR and Confirmatory Treponema pallidum Antibodies (041048). Performed at: ??[address] ??[id number] Panel Machine Operator: Shin Mckeon PhD, Phone: ??[phone] Specimen (Source)Anatomical Location / LateralityCollection Method / Volume Collection TimeReceived Time04/10/2025 4:01 PM EDT1 4:05 PM EDT Narrative [facility] - 04/11/2025 12:09 PM EDT Authorizing ProviderResult TypeResult StatusCorey Samira DOLAB BLOOD ORDERABLES Final ResultPerforming OrganizationAddressCity/State/ZIP CodePhone Number [facility] * HIV AB/P24 AG WITH REFLEX (04/10/2025 4:01 PM EDT)ComponentValueRef RangeTest MethodAnalysis TimePerformed AtPathologist SignatureHIV AB/P24 AG SCREENNon ReactiveNon ReactiveTBHComment: HIV-1/HIV-2 antibodies and HIV-1 p24 antigen were NOT detected. There is no laboratory evidence of HIV infection. HIV Negative Performed at: ??[address] ??[id number] Panel Machine Operator: Shin Mckeon PhD, Phone: ??[phone] Specimen (Source)Anatomical Location / LateralityCollection Method / Volume Collection TimeReceived Time04/10/2025 4:01 PM EDT1 4:05 PM EDT Narrative [facility] - 04/11/2025 5:07 AM EDT Authorizing ProviderResult TypeResult StatusCorey Samira DOLAB BLOOD ORDERABLES Final ResultPerforming OrganizationAddressCity/State/ZIP CodePhone Number [facility] * HCV ANTIBODY RFX TO QUANT PCR (04/10/2025 4:01 PM EDT)ComponentValueRef Range Test MethodAnalysis TimePerformed AtPathologist SignatureHCV ABNon ReactiveNon ReactiveTBHINTERPRETATION:Comment.TBHComment: Not infected with HCV unless early or acute infection is suspected (which may be delayed in an immunocompromised individual), or other evidence exists to indicate HCV infection. Specimen (Source)Anatomical Location / LateralityCollection Method / Volume Collection TimeReceived Time04/10/2025 4:01 PM EDT1 4:05 PM EDT Narrative [facility] - 04/11/2025 5:07 AM EDT Authorizing ProviderResult TypeResult StatusCorey Samira DOLAB BLOOD ORDERABLES Final ResultPerforming OrganizationAddressCity/State/ZIP CodePhone Number [facility] * MLR HEMOGLOBIN A1C (04/10/2025 4:01 PM EDT)ComponentValueRef RangeTest Method Analysis TimePerformed AtPathologist SignatureGLYCOHEMOGLOBIN A1C4.84.5 - 6.2 %TBHComment: ADA RECOMMENDED LIMIT 4.0 - 6.0 ADA THERAPEUTIC TARGET < 7.0 ACTION SUGGESTED > 7.0 ESTIMATED AVERAGE MJDATKM95mm/dLTBHSpecimen (Source)Anatomical Location / LateralityCollection Method / VolumeCollection TimeReceived Time04/10/2025 4:01 PM EDT1 4:05 PM EDT Narrative [facility] - 04/10/2025 4:27 PM EDT Authorizing ProviderResult TypeResult StatusCorey Samira DOCLINISYNCFinal Result Performing OrganizationAddressty/State/ZIP CodePhone Number [facility] * ALL TYPE AND SCREEN (04/10/2025 4:01 PM EDT)ComponentValueRef RangeTest Method Analysis TimePerformed AtPathologist SignatureBLOOD TYPEA PositiveTBHANTIBODY SCREENNEGATIVETBHSpecimen (Source)Anatomical Location / LateralityCollection Method / VolumeCollection TimeReceived Time04/10/2025 4:01 PM EDT1 4:05 PM EDT Narrative [facility] - 04/10/2025 4:52 PM EDT [facility] , Authorizing ProviderResult TypeResult StatusCorey Samira DOCLINISYNCFinal Result Performing OrganizationAddTorrance State Hospitalty/State/ZIP CodePhone Number [facility] * ALL RUBELLA IGG AB (04/10/2025 4:01 PM EDT)ComponentValueRef RangeTest Method Analysis TimePerformed AtPathologist SignatureRUBELLA ANTIBODIES, IGG1.76 Immune >0.99 indexTBHComment: Non-immune <0.90 ?Equivocal ??0.90 - 0.99 Immune >0.99 Performed at: ??CB - [facility] [address] ??[id number] Panel Machine Operator: Shin Mckeon PhD, Phone: ??[phone] Specimen (Source)Anatomical Location / LateralityCollection Method / Volume Collection TimeReceived Time04/10/2025 4:01 PM EDT1 4:05 PM EDT Narrative [facility] - 04/11/2025 5:07 AM EDT Authorizing ProviderResult TypeResult StatusCoredeirdre Hogan DOCLINISYNCFinal Result Performing OrganizationAddressCity/State/ZIP CodePhone Number [facility] * GLUCOSE 1 HOUR (03/30/2025 11:45 AM EDT)ComponentValueRef RangeTest Method Analysis TimePerformed AtPathologist SignatureGLUCOSE 1 HOUR96<130 mg/dLTBH Specimen (Source)Anatomical Location / LateralityCollection Method / Volume Collection TimeReceived Time03/30/2025 11:45 AM EDT1 11:47 AM EDT Narrative [facility] - 03/30/2025 1:03 PM EDT Authorizing ProviderResult TypeResult StatusAmy Saluda PALAB BLOOD ORDERABLES Final ResultPerforming OrganizationAddressCity/State/ZIP CodePhone Number [facility] * (ABNORMAL) ALL CBC WITH AUTO DIFF (03/30/2025 11:45 AM EDT)ComponentValueRef RangeTest MethodAnalysis TimePerformed AtPathologist SignatureTBH WBC8.14.0 - 11.0 10 3/uLTBHTBH RBC3.76(L)4.20 - 5.40 10 6/uLTBHTBH HGB11.1(L)12.0 - 16.0 g/dLTBHTBH HCT32.8(L)36.0 - 48.0 %TBHTBH MCV87.281.0 - 99.0 fLTBHTBH MCH29.5 26.7 - 34.0 pgTBHTBH MCHC33.829.9 - 35.2 g/dLTBHTBH RDW12.111.0 - 15.0 %TBHTBH YQC388738 - 450 10 3/uLTBHTBH MPV10.39.5 - 13.5 fLTBHNEUTROPHILS PERCENT AUTO 68.443.0 - 75.0 %TBHLYMPHOCYTES PERCENT AUTO24.120.5 - 60.0 %TBHMONOCYTES PERCENT AUTO6.41.7 - 12.0 %TBHTBH EO %0.5(L)0.9 - 7.0 %TBHBASOPHILS PERCENT AUTO0.20.2 - 2.0 %TBHIMMATURE GRANULOCYTES PCT AUTO0.40.0 - 0.5 %TBH NEUTROPHILS ABSOLUTE AUTO5.51.4 - 6.5 10 3/uLTBHLYMPHOCYTES ABSOLUTE AUTO2.0 1.2 - 3.8 10 3/uLTBHMONOCYTES ABSOLUTE AUTO0.50.3 - 0.8 10 3/uLTBHTBH EO #0.0 0.0 - 0.7 10 3/uLTBHBASOPHILS ABSOLUTE AUTO0.00.0 - 0.1 10 3/uLTBHIMMATURE GRANULOCYTES ABS AUTO0.030.00 - 0.03 10 3/uLTBHSpecimen (Source)Anatomical Location / LateralityCollection Method / VolumeCollection TimeReceived Time 03/30/2025 11:45 AM EDT1 11:47 AM EDT Narrative [facility] - 03/30/2025 12:48 PM EDT Authorizing ProviderResult TypeResult StatusAmy Usha PACLINISYNCFinal Result Performing OrganizationAddressCity/State/ZIP CodePhone Number [facility] from Last 3 Months Insurance Care Teams Team MemberRelationshipSpecialtyStart DateEnd Date Anthony Stauffer MD [address] [place] [address], [address] [place] [address] PCP - [facility]12/08/24
== END 2025-06-01 18:54 | disposition home or self-care (01) ==
LOC: LAB 18:53
PROVIDERS: PCP Internal Medicine; Visit Provider Nurse Practitioner Family
DX: Z34.93 Encounter for supervision of normal pregnancy, unspecified, third trimester (principal); Z3A.36 36 weeks gestation of pregnancy
CPT/HCPCS: 87081

== ENCOUNTER 2025-06-08 18:57 | Outpatient (OUT) | payer MEDICAID, SELFPAY ==
--- OUTSIDE RECORDS SUMMARY | 2025-06-01 15:20 | XMS_ITS | Encounter Summary ---
Author Organization [facility] Address [address] [place] [address] Care Team Providers Care Lead Inspector Name Role Phone Anthony Stauffer MD Primary Care Provider [phone] Reason for Visit * ReasonCommentsRoutine Visit Encounter Details DateTypeDepartmentCare Team (Latest Contact Info)Ypdgtaqldof27/11/2025 3:20 PM ESTRoutine [facility] [address] [place] [address] Tiara Escamilla NP [address] [place] [address] Third trimester ([facility]); 36 weeks gestation of ([facility]); Nausea Social History Tobacco UseTypesPacks/DayYears UsedDateSmoking Tobacco: Never Assessed Estimated Date of UnvsxtjbBmxkfuuhLue57/06/2026ased on UltrasoundSex and Gender InformationValueDate RecordedSex Assigned at BirthNot on fileLegal SexFemale 10/13/2023 11:10 AM EDTGender IdentityNot on fileSexual OrientationNot on file documented as of this encounter Last Filed Vital Signs Vital SignReadingTime TakenCommentsBlood Nobtnthm303/6006/01/2025 3:47 PM EST Pulse--Temperature--Respiratory Rate--Oxygen Saturation--Inhaled Oxygen Concentration--Iwtqga15.1 kg (189 lb 12 oz)06/01/2025 3:47 PM [...] nursing note reviewed. Exam conducted with a mechanical design engineer present. Vitals: Estimated body mass index is 29.72 kg/m?? as calculated from the following: Height as of 12/08/24: 5' 7 . Weight as of this encounter: 189 lb 12 oz. BP: 120/60 Patient's last menstrual period was 08/28/2024. Assessment/Plan ICD-10-CM 1. Third trimester ([facility]) Z34.93 POCT urinalysis dipstick manually resulted CULTURE, GROUP B STREP WITH SUSCEPTIBLITY CULTURE, GROUP B STREP WITH SUSCEPTIBLITY 2. 36 weeks gestation of ([facility]) Z3A.36 3. Nausea R11.0 metoclopramide (Reglan) 10 [...] Plan of Treatment DateTypeDepartmentCare Team (Latest Contact Info)Pzaupvromkx34/22/2025 3:50 PM ESTRoutine [facility] [address] [place] [phone] Mega Hogan, [address] [place] [address] NameTypePriorityAssociated DiagnosesOrder ScheduleCULTURE, GROUP B STREP WITH SUSCEPTIBLITYLabRoutine Third trimester ([facility]) Expected: 06/01/2025, Expires: 06/01/2026documented as of this encounter Procedures Procedure NamePriorityDate/TimeAssociated DiagnosisCommentsPOCT URINALYSIS WRKROOLXNqtxgtp54/11/2025 4:11 PM EST Third trimester ([facility]) documented in this encounter Results * (ABNORMAL) [...] / LateralityCollection Method / Volume Collection TimeReceived AazoZwpnl98/11/2025 4:11 PM EST Narrative Authorizing ProviderResult TypeResult StatusTiara Escamilla NPPOINT OF CARE TEST ENTER/EDIT ORDERABLESFinal Result documented in this encounter Visit Diagnoses Diagnosis Third trimester ([facility]) state, incidental 36 weeks gestation of ([facility]) Nausea Nausea alone documented in this encounter Care Teams Team MemberRelationshipSpecialtyStart DateEnd Date Anthony Stauffer MD [address] [place] [address], [address] [place] [address] PCP - GeneralFamily Medicine12/08/24documented as of this encounter
--- OUTSIDE RECORDS SUMMARY | 2025-06-07 10:50 | XMS_ITS | Encounter Summary ---
Author Organization [facility] Address [address] [place] [address] Care Team Providers Care Supervisor [place] Name Role Phone Anthony Stauffer MD Primary Care Provider Reason for Visit * ReasonCommentsRoutine Visit Encounter Details DateTypeDepartmentCare Team (Latest Contact Info)Usbxymzhsyf67/17/2025 10:50 AM ESTRoutine [facility] Cherie OBGYMargarito [address] [place] [id number] Lisy Kerr PA [address] [place] [address] Third trimester ([facility]); 37 weeks gestation of ([facility]) Social History Tobacco UseTypesPacks/DayYears UsedDateSmoking Tobacco: NeverSmokeless Tobacco: Never Tobacco Cessation:Counseling Given: Not Answered Alcohol UseStandard Drinks/WeekCommentsNever0 (1 standard drink = 0.6 oz pure alcohol)Estimated Date of PdyuswjuViplfzhaMdb79/06/2026Based on UltrasoundSex and Gender InformationValueDate RecordedSex Assigned at BirthNot on fileLegal AjyEzucuf69/23/2024 11:10 AM EDTGender IdentityNot on fileSexual OrientationNot on filedocumented as of this encounter Last Filed Vital Signs Vital SignReadingTime TakenCommentsBlood Mhipnzmo421/6806/07/2025 10:53 AM EST Pulse--Temperature--Respiratory Rate--Oxygen Saturation--Inhaled Oxygen Concentration--Vbxwhr98.2 kg (190 lb)06/07/2025 10:53 AM ESTHeight--Body Mass Index29.7606/ 2:25 PM EDTdocumented in this encounter Progress Notes * SHAN Boateng - 06/07/2025 10:50 AM EST Reason for Appointment: Patient [...] file. Social History Tobacco Use Smoking status: Never Smokeless tobacco: Never Substance Use Topics Alcohol use: Never Drug use: Never FAMILY HISTORY No family history on file. [...] Exam Constitutional: Appearance: Normal appearance. She is normal weight. HENT: Head: Normocephalic. Cardiovascular: Rate and Rhythm: Normal rate. Pulses: Normal pulses. Pulmonary: Effort: Pulmonary effort is normal. Breath sounds: Normal breath sounds. Abdominal: Palpations: Abdomen is soft. Musculoskeletal: General: Normal range of motion. Neurological: General: No focal deficit present. Mental Status: She is alert and oriented to person, place, and time. Psychiatric: Mood and Affect: Mood normal. Behavior: Behavior normal. Thought Content: Thought content normal. Judgment: Judgment normal. Vitals and nursing note reviewed. Vitals: Estimated body mass index is 29.76 kg/m?? as calculated from the following: Height as of 12/08/24: 5' 7 . Weight as of this encounter: 190 lb. BP: 112/68 Patient's last menstrual period was 08/28/2024. ASSESSMENT & PLAN ICD-10-CM 1. Third trimester ([facility]) Z34.93 2. 37 weeks gestation of ([facility]) Z3A.37 POCT urinalysis dipstick manually resulted Assessment/Plan Return OB: Patient presents today for a routine obstetrics appointment. Patient is currently 37w1d . Patient states she is doing well [...] week for routine OB appointment. Documented by Angeles Anguiano CST on behalf of: SHAN Boateng documented in this encounter Plan of Treatment DateTypeDepartmentCare Team (Latest Contact Info)Xytmensfjho67/22/2025 3:50 PM ESTRoutine [facility]YN [address] [place] [address] Mega Hogan, [address] [facility] [address] [place], [place] [id number] documented as of this encounter Procedures Procedure NamePriorityDate/TimeAssociated DiagnosisCommentsPOCT URINALYSIS GMZLWHXDNbcszis87/17/2025 11:08 AM EST 37 weeks gestation of ([facility]) documented in this encounter Results * POCT urinalysis dipstick manually resulted (06/07/2025 11:08 AM EST)Component ValueRef RangeTest MethodAnalysis TimePerformed AtPathologist SignatureColor, UAYellowClarity, UAClearGlucose, UANegativeNegative - 2000(110) ++++ mg/dL Bilirubin, UANegativeNegative - 4(70) +++ mg/dLKetones, UANegativeNegative - 160(16) ++++ mg/dLSpec Grav, UA1.0151 - 1.03Blood, UANegativeNegative - 50 Cristofer/mcLpH, UA7.55 - 9Protein, UANegativeNegative - 1999(20) ++++ mg/dL Urobilinogen, UA1.00.2 - 12 mg/dLLeukocytes, UANegativeNegative - 500+++ Eladio/mcLNitrite, UANegativeNegative - PositiveSpecimen (Source)Anatomical Location / LateralityCollection Method / VolumeCollection TimeReceived Time Urine06/07/2025 11:08 AM EST Narrative Authorizing ProviderResult TypeResult StatusSentara Princess Anne Hospital TEST ENTER/EDIT ORDERABLESFinal Result documented in this encounter Visit Diagnoses Diagnosis Third trimester ([facility]) state, incidental 37 weeks gestation of ([facility]) documented in this encounter Care Teams Team MemberRelationshipSpecialtyStart DateEnd Date Anthony Stauffer MD [address] [place] [address], [address] [place] [address] PCP - GeneralFamily Medicine12/08/24documented as of this encounter
--- OUTSIDE RECORDS SUMMARY | 2025-06-08 19:02 | XMS_ITS | Encounter Summary ---
Author Organization [facility] Address [address] [place] [address] Care Team Providers Care Optometrist/Practice Owner Name Role Phone Anthony Stauffer MD Primary Care Provider [phone] Encounter Details DateTypeDepartmentCare Team (Latest Contact Info)Eejolgxxzoe62/11/2025linisync Result Encounter [facility] External Department Unsolicited Tiara Escamilla, CHEMICAL PLANT OPERATOR [address] [facility] [place] [address] Social History Tobacco UseTypesPacks/DayYears UsedDateSmoking Tobacco: Never Assessed Estimated Date of CwwzcxtfYbqafszgQqc05/06/2026Based on UltrasoundSex and Gender InformationValueDate RecordedSex Assigned at BirthNot on fileLegal SexFemale 10/13/2023 11:10 AM EDTGender IdentityNot on fileSexual OrientationNot on file documented as of this encounter Plan of Treatment DateTypeDepartmentCare Team (Latest Contact Info)Vehcuodmvcc95/22/2025 3:50 PM ESTRoutine [facility]BGYN [address] [place] [address] Mega Hogan DO [address] [place], [place] [address] documented as of this encounter Procedures Procedure NamePriorityDate/TimeAssociated DiagnosisCommentsSTREP GP B CULTURE+PTCLJpxfxui08/11/2025 3:38 PM EST documented in this encounter Results * STREP GP B CULTURE+RFLX (06/01/2025 3:38 PM EST)ComponentValueRef RangeTest MethodAnalysis TimePerformed AtPathologist SignatureSTREP GP B CULTURE+RFLX ??Strep Gp B Culture+Rflx TBHSTREP GP B CULTURE+RFLXNegativeTBHSTREP GP B CULTURE+RFLXCenters for Disease Control and Prevention (CDC) andTBHSTREP GP B CULTURE+RFLXAmerican Congress of Obstetricians and GynecologistsTBHSTREP GP B CULTURE+RFLX(ACOG) guidelines for prevention of group BTBHSTREP GP B CULTURE+RFLXstreptococcal (GBS) disease specify co-collection ofTBHSTREP GP B CULTURE+RFLXa vaginal and rectal swab specimen to maximizeTBHSTREP GP B CULTURE+RFLXsensitivity of GBS detection. Per the CDC and ACOG,TBHSTREP GP B CULTURE+RFLXswabbing both the lower vagina and rectumTBHSTREP GP B CULTURE+RFLXsubstantially increases the yield of detectionTBHSTREP GP B CULTURE+RFLXcompared with sampling the vagina alone.TBH STREP GP B CULTURE+RFLXPenicillin G, ampicillin, or cefazolin are indicatedTBH STREP GP B CULTURE+RFLXfor intrapartum prophylaxis of GBSTBHSTREP GP B CULTURE+RFLXcolonization. Reflex susceptibility testing should beTBHSTREP GP B CULTURE+RFLXperformed prior to use of clindamycin only on GBSTBHSTREP GP B CULTURE+RFLXisolates from penicillin-allergic women who areTBHSTREP GP B CULTURE+RFLXconsidered a high risk for anaphylaxis. Treatment withTBHSTREP GP B CULTURE+RFLXvancomycin without additional testing is warranted ifTBHSTREP GP B CULTURE+RFLXresistance to clindamycin is noted.TBHSTREP GP B CULTURE+RFLX Performed at: [facility]TBHSTREP GP B CULTURE+[id number] [place], [place] [id number] GP B CULTURE+RFLXLab Director: Shin Mckeon PhD, Phone: [phone] (Source)Anatomical Location / Laterality Collection Method / VolumeCollection TimeReceived Time06/01/2025 3:38 PM EST 06/01/2025 7:06 PM EST Narrative [facility] - 06/06/2025 2:09 PM EST Authorizing ProviderResult TypeResult StatusTiara Escamilla NPLAB BLOOD ORDERABLESFinal ResultPerforming OrganizationAddressCity/State/ZIP CodePhone Number [facility] documented in this encounter Visit Diagnoses Not on filedocumented in this encounter Care Teams Team MemberRelationshipSpecialtyStart DateEnd Date Anthony Stauffer MD [address] [place] [address], [address] [place] [address] PCP - GeneralFamily Medicine12/08/24documented as of this encounter
--- OUTSIDE RECORDS SUMMARY | 2025-06-08 19:02 | XMS_ITS | Encounter Summary ---
Author Organization [facility] Address [address] [place] [address] Care Team Providers Care Chute Operator Name Role Phone Anthony Stauffer MD Primary Care Provider [phone] Encounter Details DateTypeDepartmentCare Team (Latest Contact Info)Veftsklsgxd86/17/2025amboo flowsheet RICHARD SALOMON [address] [facility] [place] [address] Lisy Kerr PA [address] [place], [facility] Social History Tobacco UseTypesPacks/DayYears UsedDateSmoking Tobacco: NeverSmokeless Tobacco: NeverAlcohol UseStandard Drinks/WeekCommentsNever0 (1 standard drink = 0.6 oz pure alcohol)Estimated Date of LycxpxgoEmimyqvbOfj55/06/2026Based on UltrasoundSex and Gender InformationValueDate RecordedSex Assigned at BirthNot on fileLegal KtxOicgqh13/23/2024 11:10 AM EDTGender IdentityNot on fileSexual OrientationNot on filedocumented as of this encounter Plan of Treatment DateTypeDepartmentCare Team (Latest Contact Info)Ovccelblusl81/22/2025 3:50 PM ESTRoutine RICHARD SALOMON [address] [facility] [facility] [place] [address] Mega Hogan DO [address] [facility] [address] [facility] [address] [place], [facility]11 documented as of this encounter Visit Diagnoses Not on filedocumented in this encounter Care Teams Team MemberRelationshipSpecialtyStart DateEnd Date Anthony Stauffer MD [address] [place] [address], [address] [place] [address] PCP - GeneralFamily Medicine12/08/24documented as of this encounter
--- OUTSIDE RECORDS SUMMARY | 2025-06-08 19:02 | XMS_ITS | Clinical Summary ---
Author Organization [facility] Address [address] [place] [address] Care Team Providers Care Phlebotomist Associate Name Role Phone Unavailable Primary Care Provider Unavailabl e Social History Tobacco UseTypesPacks/DayYears UsedDateSmoking Tobacco: Never Assessed CommentsUnknownSex and Gender InformationValueDate RecordedSex Assigned at Not on fileLegal EsqBorroo52/30/2022 12:27 AM EDTGender IdentityNot on file Sexual OrientationNot on file Plan of Treatment Not on file
--- OUTSIDE RECORDS SUMMARY | 2025-06-08 19:02 | XMS_ITS | Encounter Summary ---
Author Organization [facility] Address [address] [place] [address] Care Team Providers Care Studio Coordinator Name Role Phone Anthony Stauffer MD Primary Care Provider [phone] Encounter Details DateTypeDepartmentCare Team (Latest Contact Info)Fyssfbkfhej97/11/2025amboo flowsheet RICHARD SALOMON [address] [place] [address] Tiara Escamilla, SENIOR ENLISTED ADVISOR [address] [facility] [place] [address] Social History Tobacco UseTypesPacks/DayYears UsedDateSmoking Tobacco: Never Assessed Estimated Date of ZcaajnioPiaypcsaJog26/06/2026Based on UltrasoundSex and Gender InformationValueDate RecordedSex Assigned at BirthNot on fileLegal SexFemale 10/13/2023 11:10 AM EDTGender IdentityNot on fileSexual OrientationNot on file documented as of this encounter Plan of Treatment DateTypeDepartmentCare Team (Latest Contact Info)Xotiodorgwh20/22/2025 3:50 PM ESTRoutine NOMMary SALOMON [address] [place] [address] Mega Hogan DO [address] [facility] [address] [place], [place] [id number] documented as of this encounter Visit Diagnoses Not on filedocumented in this encounter Care Teams Team MemberRelationshipSpecialtyStart DateEnd Date Anthony Stauffer MD [address] [place] [address], [address] [place] [address] PCP - GeneralFamily Medicine12/08/24documented as of this encounter
--- OUTSIDE RECORDS SUMMARY | 2025-06-08 19:02 | XMS_ITS | Encounter Summary ---
Author Organization [facility] Address [address] [place] [address] Care Team Providers Care Watershed Coordinator Name Role Phone Anthony Stauffer MD Primary Care Provider [phone] Encounter Details DateTypeDepartmentCare Team (Latest Contact Info)Afyezmqsjrg19/11/2025Travel Social History Tobacco UseTypesPacks/DayYears UsedDateSmoking Tobacco: Never Assessed Estimated Date of YsawtddwQaroqqqoMyl87/06/2026Based on UltrasoundSex and Gender InformationValueDate RecordedSex Assigned at BirthNot on fileLegal SexFemale 10/13/2023 11:10 AM EDTGender IdentityNot on fileSexual OrientationNot on file documented as of this encounter Plan of Treatment DateTypeDepartmentCare Team (Latest Contact Info)Klnmlglxrmo99/22/2025 3:50 PM ESTRoutine [facility]BGYN [address] [facility] [place] [address] Mega Hogan DO [address] [facility] [address] [place], [facility]11 documented as of this encounter Visit Diagnoses Not on filedocumented in this encounter Care Teams Team MemberRelationshipSpecialtyStart DateEnd Date Anthony Stauffer MD [address] [place] [address], [address] [place] [id number] PCP - GeneralFamily Medicine12/08/24documented as of this encounter
--- OUTSIDE RECORDS SUMMARY | 2025-06-08 19:02 | XMS_ITS | Clinical Summary ---
Author Organization [facility] tem Address [id number] [address] [place] [address] Care Team Providers Care Thiokol Operator Name Role Phone Anthony Stauffer MD Primary Care Provider [phone] Allergies No known active allergies Medications MedicationSigDispense QuantityRefillsLast FilledStart DateEnd DateStatus norethindrone-e.estradioL-iron (07/11) 1 mg-20 mcg (21)/75 mg (7) per tablet Take 1 tablet by mouth in the morning. 28 tablet 11107/25/2023ctive 115/iron/folic acid ( 19 ORAL) Take by mouth.Active Active Problems ProblemNoted DateDiagnosed DateHSV (herpes simplex virus) anogenital infection 04/21/2024 Overview (04/21/2024): 04/20/24 (+) HSV 1 TonsillitisEstimated Date of MnezytlpDgokbkufQvg91/06/2026ased on last menstrual period of 09/20/2024 Encounters DateTypeDepartmentCare YorsSxyzpmphdkc57/11/2025 2:13 PM EDT - 04/01/2025 5:11 PM EDTHospital Encounter [facility] [address] [place] [address] Alexis Stanford MD Discharge Disposition: Home04/01/2025 - 04/01/2025 2:10 PM EDTEmergency [facility] Emergency [address] [place] [address] Discharge Disposition: ED Dismiss - Diverted Elsewherefrom Last 3 Months Social History Tobacco UseTypesPacks/DayYears UsedDateSmoking Tobacco: NeverSmokeless Tobacco: Never Tobacco Cessation:Counseling Given: Not Answered Alcohol UseStandard Drinks/WeekCommentsNever0 (1 standard drink = 0.6 oz pure alcohol)[facility] UtilitiesAnswerDate RecordedIn the past 12 months has the [employer], [employer], oil, or water [employer] threatened to shut off services in your [...] as a part of a household?No5ChildcareAnswerDate Recorded KoazwbubdKqwwfrt90/10/2020EmploymentAnswerDate RecordedEmploymentUnknown 05/01/2020Hunger ScreeningAnswerDate RecordedWithin the past 12 months we worried whether our food would run out before we got money to buy more.Never True04/01/2025Within the past 12 months the food we bought just didn't last and we didn't have money to get more.Never True04/01/2025Purpose - LifeAnswerDate RecordedPurpose and direction in dcarXjwresw53/02/2021Estimated Date of YimcnorbArurkbzrZkx68/06/2026Based on last menstrual period of 09/20/2024Sex and Gender InformationValueDate RecordedSex Assigned at BirthNot on fileLegal Sex Xoswdq1101/23/2015 12:51 PM EDTGender IdentityNot on fileSexual OrientationNot on file Last Filed Vital Signs Vital SignReadingTime TakenCommentsBlood Fqmxlatx205/511 2:13 PM EDT Xqqso52797/11/2025 2:13 PM XFYHczvqpzqquc21.9 ??C (98.5 ??F)04/01/2025 2:13 PM EDTRespiratory Rcws3458 2:13 PM EDTOxygen Jpiehupksg023%04/01/2025 2:13 PM EDTInhaled Oxygen Concentration--Iycdql56.9 kg (138 lb 10.7 oz)04/01/2025 2:27 PM ITPKlpnia244.2 cm (5' 7 )04/01/2025 2:27 PM EDTBody Mass Index21.72 04/01/2025 2:27 PM EDT Plan of Treatment Health MaintenanceDue DateLast DoneCommentsChlamydia Mpuihmzav19/11/2005 Depression Sckmgwdzi06/11/2017Influenza Zakfvfo1202/20/2025Tobacco Screening /dult BMI Sgeainbhs91DTaP,Tdap and Td Vaccines (6 - Td or Tdap), 03/09/2009, 01/15/2005, Additional history existsRSV ( or age 60+ yrs) (No Doses Required) Completed Medical Devices Not on file Procedures Procedure NamePriorityDate/TimeAssociated DiagnosisCommentsCBC WITH AUTO EKXLCACIAYSAHHCD96/11/2025 3:24 PM EDT ATBIOXTTLYERQB45/11/2025 3:15 PM EDT URINE WEHDNPLIhmzkrt09/11/2025 3:15 PM EDT from Last 3 Months Results * (ABNORMAL) CBC auto differential (04/01/2025 3:24 PM EDT)ComponentValueRef RangeTest MethodAnalysis TimePerformed AtPathologist SignatureWBC8.14 - 11 x10E9/L1 3:35 PM EDTPKETTERING HEALTH TROYRBC Count4.06 3.8 - 5.2 X10E12/L1 3:35 PM EDMER[facility] Ovdjgzscrd03.6(L)11.7 - 15.5 g/dL04/01/2025 3:35 PM EDTPKETTERING HEALTH TROYHematocrit34.7(L)35 - 47 %04/01/2025 3:35 PM EDTPKETTERING HEALTH TROYMCV8680 - 100 fL04/01/2025 3:35 PM EDTPMERCY HEALTH TIFFIN HOSPITALH28.727 - 34 pg04/01/2025 3:35 PM EDMER[facility] PERRYSBURG HOSPITALMCHC33.532 - 36 g/dL04/01/2025 3:35 PM EDTPKETTERING HEALTH TROYRDW12.511.5 - 15 %04/01/2025 3:35 PM EDTPKETTERING HEALTH TROYPlatelet Nrhjp027147 - 450 X10E9/L1 3:35 PM EDTPKETTERING HEALTH TROYMPV8.17 - 12 fL04/01/2025 3:[address] [facility]ENTERNeutrophils %68.8%04/01/2025 3:[address] [facility]ENTERLymphocytes %24.6%04/01/2025 3:35 PM EDT [facility] HOSPITALMonocytes %6.0%04/01/2025 3:[address] [facility] CENTEREosinophils %0.4%04/01/2025 3:[address] [facility]ENTERBasophils %0.2%04/01/2025 3:[address] [facility] CENTERNeutrophils Absolute (A)5.51.5 - 6.6 10*3/uL04/01/2025 3:35 PM EDTPKETTERING HEALTH TROYLymphocytes Absolute2.01.0 - 3.5 10*3/uL04/01/2025 3:35 PM EDTPKETTERING HEALTH TROYMonocytes Absolute0.50.0 - 0.9 10*3/uL04/01/2025 3:35 PM EDMER[facility] PERRYSBURG HOSPITALEosinophils Absolute0.00.0 - 0.4 10*3/uL04/01/2025 3:35 PM EDMER[facility]OSPITALBasophils Absolute0.00.0 - 0.2 10*3/uL04/01/2025 3:35 PM EDMER[facility]ALTH PERRYSBURG HOSPITALDifferential TypeAUTOMATED UEIFMFYPRKIW80/11/2025 3:35 PM EDRIVERVIEW HEALTH INSTITUTEpecimen (Source)Anatomical Location / LateralityCollection Method / VolumeCollection TimeReceived TimeBloodVenous blood / UnknownVenipuncture / Axqfklz9004/01/2025 3:24 PM EDT1 3:27 PM EDT Narrative Authorizing ProviderResult TypeResult StatusTiberimaycol Stanford MDLAB BLOOD ORDERABLESFinal ResultPerforming OrganizationAddressCity/State/ZIP CodePhone Number [facility] [address] [place] [address], * Urinalysis (04/01/2025 3:15 PM EDT)ComponentValueRef RangeTest MethodAnalysis TimePerformed AtPathologist RqeiwhyziWLMTUBmyxkkIrwnnj36/11/2025 3:[address] [facility] CENTERTURBIDITYClearClear04/01/2025 3:33 PM EDT [facility]ITALPECIFIC GRAVITY1.0151.003 - 1.035 04/01/2025 3:33 PM EDTPKETTERING HEALTH TROYNITRITENegative Hfzvrfhk52/11/2025 3:33 PM EDMER[facility]ALTH PERRYSBURG HOSPITALPH,URINE8.5 5.0 - 8.510 3:33 PM EDMERCY HEALTH PERRYSBURG HOSPITALLEUKOCYTE YEYCBGDVJbvnontgAxziltwx78/11/2025 3:33 PM EDTPKETTERING HEALTH TROYPROTEINNegativeNegative04/01/2025 3:33 PM EDTPKETTERING HEALTH TROYKETONES (URINE)UgrxjqtuBferoqez73/11/2025 3:[address] [facility] CENTERUROBILINOGEN0.2 eu/dL0.2 eu/dL, 1.0 eu/dL 04/01/2025 3:33 PM EDTPKETTERING HEALTH TROYBILIRUBIN (URINE) EahpmodrGwskffzk93/11/2025 3:33 PM EDTPKETTERING HEALTH TROY BLOOD/LNKJqbqjdmgTjhlczis78/11/2025 3:33 PM EDTPKETTERING HEALTH TROYGLUCOSE (URINE)NegativeNegative, 250 mg/dL04/01/2025 3:33 PM EDT [facility]OSPITALpecimen (Source)Anatomical Location / LateralityCollection Method / VolumeCollection TimeReceived TimeUrineUrine specimen collection, clean catch / Saiekkt2504/01/2025 3:15 PM EDT1 3:28 PM EDT Narrative Authorizing ProviderResult TypeResult Trav LINDA ORDERABLES Final ResultPerforming OrganizationAddressCity/State/ZIP CodePhone Number [facility] [address] [place] [address], * Urine Culture Urine, Clean Catch Midstream (04/01/2025 3:15 PM EDT)Component ValueRef RangeTest MethodAnalysis TimePerformed AtPathologist SignatureCULTURE ZNUPNOH73-833,000 ORGANISMS/mL NORMAL UROGENITAL FLORA04/02/2025 9:14 PM EDT [facility] LABORATORYSpecimen (Source)Anatomical Location / LateralityCollection Method / VolumeCollection TimeReceived TimeUrineUrine specimen collection, clean catch / Gdxvmny6604/01/2025 3:15 PM EDT1 3:28 PM EDT Narrative Authorizing ProviderResult TypeResult Trav Stanford MDMICROBIOLOGY - GENERAL ORDERABLESFinal ResultPerforming OrganizationAddressCity/State/ZIP Code Phone Number [facility] [address] [place] [address], [place] [phone] from Last 3 Months Insurance Care Teams Team MemberRelationshipSpecialtyStart DateEnd Date Anthony Stauffer MD [address] [place] [address], [address] [place] [address] PCP - FaxlopzKrdtffdvhe83/31/23
--- OUTSIDE RECORDS SUMMARY | 2025-06-08 19:02 | XMS_ITS | Clinical Summary ---
Author Organization [facility] Address [address] [place] [address] Care Team Providers Care Chief Security And Safety Officer Name Role Phone Anthony Stauffer MD Primary Care Provider [phone] Allergies No known active allergies Medications MedicationSigDispense QuantityRefillsLast FilledStart DateEnd DateStatus magnesium oxide (Mag-Ox) 400 MG tablet Indications:Intractable headache, unspecified chronicity pattern, unspecified headache typeTake 1 tablet (400 mg) by mouth Daily 30 tablet 6107/25/309733/6Active metoclopramide (Reglan) 10 MG tablet Indications:NauseaTake 1 tablet (10 mg) by mouth in the morning and 1 tablet (10 mg) at noon and 1 tablet (10 mg) in the evening. Take before meals. Take 1 tablet by mouth 30 minutes prior to meals 3 times daily as needed for nausea. 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 Take before meals. Take 1 tablet by mouth 30 minutes prior to meals 3 times daily as needed for nausea. 90 tablet 5108/02/2024Discontinued(Reorder) Encounters DateTypeDepartmentCare GqamXiliazochyv85/17/2025 10:50 AM ESTRoutine [facility] [address] [place] [address] Lisy Kerr PA Third trimester ([facility]); 37 weeks gestation of ([facility])06/07/2025amboo flowsheet [facility] [address] [place] [address] Lisy Kerr PA 06/01/2025 3:20 PM ESTRoutine [facility] [address] [place] [address] Tiara Escaimlla NP Third trimester ([facility]); 36 weeks gestation of ([facility]); Cuudcc4606/01/2025linisync Result Encounter [facility] External Department Unsolicited Tiara Escamilla NP 06/01/2025amboo flowsheet [facility] [address] [place] [address] [place] [address] Tiara Escamilla NP 06/01/20259389Tblayg95/03/2025 10:50 AM ESTRoutine [facility] [address] [place] [address] Mega Hogan DO Intractable headache, unspecified chronicity pattern, unspecified headache type (Primary Dx); Third trimester ([facility]); 35 weeks gestation of ([facility])5Bamboo flowsheet [facility] [address] [place] [address] [place] [address] Mega Hogan DO 05/04/2025 2:50 PM ESTRoutine [facility] [address] [place] [address] Tiara Escamilla NP Nausea (Primary Dx)05/04/2025 2:30 PM ESTAncillary Procedure [facility] [address] [place] [phone] size inconsistent with dates ([facility])04/18/2025bstract [facility] [address] [place] [address] Lisy Shi LPN 04/17/2025 10:00 AM EDTRoutine [facility] [address] [place] [address] Mega Hogan, size inconsistent with dates ([facility]) (Primary Dx); Third trimester ([facility]); 29 weeks gestation of ([facility]); PCR positive for herpes simplex virus type 1 (HSV-1) DNA04/17/2025bstract [facility] [address] [place] [address] Mega Hogan, DO 04/17/2025amboo flowsheet [facility] [address] [place] [address] Mega Hogan, DO 04/14/2025Patient Outreach [facility] [address] [place] [phone] Lisy Shi LPN 04/10/2025linisync Result Encounter [facility] External Department Unsolicited Mega Hogan, DO 04/10/2025bstract [facility] [place] [facility] [address] [place] [address] Mega Hogan, DO 04/10/2025bstract [facility] [address] [place] [address] Mega Hogan, DO 04/03/2025 11:20 AM EDTRoutine [facility] [address] [place] [address] Mega Hogan, DO Second trimester ([facility]); 27 weeks gestation of ([facility]); Other constipation; Nausea and vomiting, unspecified vomiting type5Bamboo flowsheet [facility] [address] [place] [address] Mega Hogan DO 5Clinisync Result Encounter [facility] External Department Unsolicited Lisy Kerr PA from Last 3 Months Social History Tobacco UseTypesPacks/DayYears UsedDateSmoking Tobacco: NeverSmokeless Tobacco: Never Tobacco Cessation:Counseling Given: Not Answered Alcohol UseStandard Drinks/WeekCommentsNever0 (1 standard drink = 0.6 oz pure alcohol)Estimated Date of TnyxxoszLdgrpmmjAws29/06/2026ased on UltrasoundSex and Gender InformationValueDate RecordedSex Assigned at BirthNot on fileLegal EhdNyrnrs11/23/2024 11:10 AM EDTGender IdentityNot on fileSexual OrientationNot on file Last Filed Vital Signs Vital SignReadingTime TakenCommentsBlood Rucseame716/6806/07/2025 10:53 AM EST Bmuyy530210/13/2023 12:29 PM EDTTemperature--Respiratory Rate--Oxygen Saturation 99%10/13/2023 12:29 PM EDTInhaled Oxygen Concentration--Zvsxvq31.2 kg (190 lb) 06/07/2025 10:53 AM BSITaewuf505.2 cm (5' 7 )12/08/2024 2:25 PM EDTBody Mass Index29.76012/08/2024 2:25 PM EDT Plan of Treatment DateTypeDepartmentCare Team (Latest Contact Info)Qwfqfqifayf05/22/2025 3:50 PM ESTRoutine [facility] [address] [place] [address] Mega Hogan DO [address] [place], [place] [id number] Procedures Procedure NamePriorityDate/TimeAssociated DiagnosisCommentsPOCT URINALYSIS UAUNXBFJXxyswxt12/17/2025 11:08 AM EST 37 weeks gestation of ([facility]) POCT URINALYSIS NBWEKOHRIprfqyb64/11/2025 4:11 PM EST Third trimester ([facility]) STREP GP B CULTURE+DKTIBjbbwkq29/11/2025 3:38 PM EST POCT URINALYSIS ESIWKFGDGomipku45/03/2025 11:03 AM EST 35 weeks gestation of ([facility]) US OB FOLLOW UP TRANSABDOMINAL OXHJQTSMSwpmlev39/13/2025 3:36 PM EST size inconsistent with dates ([facility]) POCT URINALYSIS ONCHGGIEBdysvzj52/28/2025 2:44 PM EDT 29 weeks gestation of ([facility]) URINE CULTURE, ZCEPIVZAvmyhtg41/20/2025 4:07 PM EDT [facility] DRUG SCREEN RAPID (URINE)Vdajbpj9404/10/2025 4:07 PM EDT HBSAG MQNWWNEiipbzo32/20/2025 4:01 PM EDT RAPID PLASMA REAGIN, XKNZJMjcnabe25/20/2025 4:01 PM EDT HIV AB/P24 AG WITH DKJXRVTowxbgb45/20/2025 4:01 PM EDT HCV ANTIBODY RFX TO QUANT LCHYtfroti39/20/2025 4:01 PM EDT ALL RUBELLA IGG GOIzhfubg70/20/2025 4:01 PM EDT MLR HEMOGLOBIN C7SGmfgkwy00/20/2025 4:01 PM EDT ALL TYPE AND ONVAGFXfhvnxm07/20/2025 4:01 PM EDT POCT URINALYSIS BREWWRSHCkalhqj34/13/2025 11:41 AM EDT 27 weeks gestation of ([facility]) GLUCOSE 1 YWTQXszlaef60/09/2025 11:45 AM EDT ALL CBC WITH AUTO QTQREkrsafa32/09/2025 11:45 AM EDT from Last 3 Months Results * POCT urinalysis dipstick manually resulted (06/07/2025 11:08 AM EST) Only the most recent of5 resultswithin the time period is included. ComponentValueRef RangeTest MethodAnalysis TimePerformed AtPathologist Signature Color, UAYellowClarity, UAClearGlucose, UANegativeNegative - 2000(110) ++++ mg/dLBilirubin, UANegativeNegative - 4(70) +++ mg/dLKetones, UANegativeNegative - 160(16) ++++ mg/dLSpec Grav, UA1.0151 - 1.03Blood, UANegativeNegative - 50 Cristofer/mcLpH, UA7.55 - 9Protein, UANegativeNegative - 2000(20) ++++ mg/dL Urobilinogen, UA1.00.2 - 12 mg/dLLeukocytes, UANegativeNegative - 500+++ Eladio/mcL Nitrite, UANegativeNegative - PositiveSpecimen (Source)Anatomical Location / LateralityCollection Method / VolumeCollection TimeReceived LslsCizfm79/17/2025 11:08 AM EST Narrative Authorizing ProviderResult TypeResult StatusNew England Rehabilitation Hospital at DanversOINT OF CARE TEST ENTER/EDIT ORDERABLESFinal Result * STREP GP B CULTURE+RFLX (06/01/2025 3:38 [...] is noted.TBHSTREP GP B CULTURE+RFLX Performed at: - [facility] CenterTBHSTREP GP B CULTURE+[id number] [place], [place] [id number] GP B CULTURE+RFLXLab Director: Shin Mckeon PhD, Phone: [phone] (Source)Anatomical Location / Laterality Collection Method / VolumeCollection TimeReceived Time06/01/2025 3:38 PM EST 06/01/2025 7:06 PM EST Narrative [facility] - 06/06/2025 2:09 PM EST Authorizing ProviderResult TypeResult StatusTiara Escamilla NPYENNI BLOOD ORDERABLESFinal ResultPerforming OrganizationAddressCity/State/ZIP CodePhone Number [facility] * OB follow up transabdominal approach (05/04/2025 3:36 [...] BY: Dwayne Adams MD Authorizing ProviderResult TypeResult StatusTiara Escamilla NPIMG OB US PROCEDURESFinal Result * URINE CULTURE, ROUTINE (04/10/2025 4:07 PM EDT)ComponentValueRef RangeTest MethodAnalysis TimePerformed AtPathologist SignatureURINE CULTURE, ROUTINE ??Urine Culture, Routine TBHURINE CULTURE, ROUTINEMixed urogenital floraTBHURINE CULTURE, BDDAQBB90,000- 25,000 colony forming units per mLTBHURINE CULTURE, ROUTINEPerformed at: - [facility] CenterTBHURINE CULTURE, [id number] [place], [place] [id number] URINE CULTURE, ROUTINELab Director: Shin Mckeon PhD, Phone: [phone] Specimen (Source)Anatomical Location / LateralityCollection Method / Volume Collection TimeReceived Time04/10/2025 4:07 PM EDT1 4:07 PM EDT Narrative [facility] - 04/11/2025 9:12 PM EDT Authorizing ProviderResult TypeResult StatusCoredeirdre PURCELL BLOOD ORDERABLES Final ResultPerforming OrganizationAddressCity/State/ZIP CodePhone Number [facility] * [facility] DRUG SCREEN RAPID (URINE) (04/10/2025 [...] EDT1 4:07 PM EDT Narrative [facility] - 04/10/2025 4:25 PM EDT Authorizing ProviderResult TypeResult StatusCorey Samira DOCLINISYNCFinal Result Performing OrganizationAddressCity/State/ZIP CodePhone Number TRUE [facility] * HBSAG SCREEN (04/10/2025 4:01 PM EDT)ComponentValueRef RangeTest Method Analysis TimePerformed AtPathologist SignatureHBSAG SCREENNegativeNegativeTBH Comment: Performed at: ??CB - [facility] [address] ??[id number] Fluid Jet Cutter Operator: Shin Mckeon PhD, Phone: ??[phone] Specimen (Source)Anatomical Location / LateralityCollection Method / Volume Collection TimeReceived Time04/10/2025 4:01 PM EDT1 4:05 PM EDT Narrative [facility] - 04/11/2025 12:09 PM EDT Authorizing ProviderResult TypeResult StatusCorey Samira DOLAB BLOOD ORDERABLES Final ResultPerforming OrganizationAddressty/State/ZIP CodePhone Number JANETCOUNT [facility]CLUDES [facility] * RAPID PLASMA REAGIN, QUANT (04/10/2025 4:01 [...] utilized, such as Treponema pallidum (Syphilis) Screening Farson (359790) or Rapid Plasma Reagin (RPR) Test With Reflex to Quantitative RPR and Confirmatory Treponema pallidum Antibodies (602254). Performed at: ?? - [facility] ??[id number] Fluid Jet Cutter Operator: Shin Mckeon PhD, Phone: ??[phone] Specimen (Source)Anatomical Location / LateralityCollection Method / Volume Collection TimeReceived Time04/10/2025 4:01 PM EDT1 4:05 PM EDT Narrative [facility] - 04/11/2025 12:09 PM EDT Authorizing ProviderResult TypeResult StatusCorey Samira DOLAB BLOOD ORDERABLES Final ResultPerforming OrganizationAddressCity/State/ZIP CodePhone Number [facility]COUNT [facility] * HIV AB/P24 AG WITH REFLEX (04/10/2025 4:01 PM EDT)ComponentValueRef RangeTest MethodAnalysis TimePerformed AtPathologist SignatureHIV AB/P24 AG SCREENNon ReactiveNon ReactiveTBHComment: HIV-1/HIV-2 antibodies and HIV-1 p24 antigen were NOT detected. There is no laboratory evidence of HIV infection. HIV Negative Performed at: ??CB - [facility] [address] ??[id number] Fluid Jet Cutter Operator: Shin Mckeon PhD, Phone: ??[phone] Specimen (Source)Anatomical Location / LateralityCollection Method / Volume Collection TimeReceived Time04/10/2025 4:01 PM EDT1 4:05 PM EDT Narrative [facility] - 04/11/2025 5:07 AM EDT Authorizing ProviderResult TypeResult StatusCorey Samira DOLAB BLOOD ORDERABLES Final ResultPerforming OrganizationAddressty/State/ZIP CodePhone Number J[facility]ETCOUNT [facility] * HCV ANTIBODY RFX TO QUANT PCR [...] 4:01 PM EDT1 4:05 PM EDT Narrative [facility] - 04/11/2025 5:07 AM EDT Authorizing ProviderResult TypeResult StatusCorey Samira DOLAB BLOOD ORDERABLES Final ResultPerforming OrganizationAddressty/State/ZIP CodePhone Number JANETCOUNT [facility]CLUDES [facility] * MLR HEMOGLOBIN A1C (04/10/2025 4:01 PM EDT)ComponentValueRef RangeTest Method Analysis TimePerformed AtPathologist SignatureGLYCOHEMOGLOBIN A1C4.84.5 - 6.2 %TBHComment: ADA RECOMMENDED LIMIT 4.0 - 6.0 ADA THERAPEUTIC TARGET < 7.0 ACTION SUGGESTED > 7.0 ESTIMATED AVERAGE AYJQURI06an/dLTBHSpecimen (Source)Anatomical Location / LateralityCollection Method / VolumeCollection TimeReceived Time04/10/2025 4:01 PM EDT1 4:05 PM EDT Narrative [facility] - 04/10/2025 4:27 PM EDT Authorizing ProviderResult TypeResult StatusCorey Samira DOCLINISYNCFinal Result Performing OrganizationAddressCity/State/ZIP CodePhone Number CLINISYNC TB * ALL TYPE AND SCREEN (04/10/2025 4:01 PM EDT)ComponentValueRef RangeTest Method Analysis TimePerformed AtPathologist SignatureBLOOD TYPEA PositiveTBHANTIBODY SCREENNEGATIVETBHSpecimen (Source)Anatomical Location / LateralityCollection Method / VolumeCollection TimeReceived Time04/10/2025 4:01 PM EDT1 4:05 PM EDT Narrative [facility] - 04/10/2025 4:52 PM EDT [facility] , Authorizing ProviderResult TypeResult StatusCorey Samira DOCLINISYNCFinal Result Performing OrganizationAddressCity/State/ZIP CodePhone Number [facility]INIS[facility]NC [facility] * ALL RUBELLA IGG AB (04/10/2025 4:01 PM EDT)ComponentValueRef RangeTest Method Analysis TimePerformed AtPathologist SignatureRUBELLA ANTIBODIES, IGG1.76 Immune >0.99 indexTBHComment: Non-immune <0.90 ?Equivocal ??0.90 - 0.99 Immune >0.99 Performed at: ?? - [facility] [address] ??[id number] Fluid Jet Cutter Operator: Shin Mckeon PhD, Phone: ??[phone] Specimen (Source)Anatomical Location / LateralityCollection Method / Volume Collection TimeReceived Time04/10/2025 4:01 PM EDT1 4:05 PM EDT Narrative [facility] - 04/11/2025 5:07 AM EDT Authorizing ProviderResult TypeResult StatusCorey Samira DOCLINISYNCFinal Result Performing OrganizationAddressCity/State/ZIP CodePhone Number [facility] * GLUCOSE 1 HOUR (03/30/2025 11:45 AM EDT)ComponentValueRef RangeTest Method Analysis TimePerformed AtPathologist SignatureGLUCOSE 1 HOUR96<130 mg/dLTBH Specimen (Source)Anatomical Location / LateralityCollection Method / Volume Collection TimeReceived Time03/30/2025 11:45 AM EDT1 11:47 AM EDT Narrative [facility] - 03/30/2025 1:03 PM EDT Authorizing ProviderResult TypeResult StatusAmy Usha PARDO BLOOD ORDERABLES Final ResultPerforming OrganizationAddressCity/State/ZIP CodePhone Number CLINRHIANNON [facility] * (ABNORMAL) ALL CBC WITH AUTO DIFF (03/30/2025 11:45 AM EDT)ComponentValueRef RangeTest MethodAnalysis TimePerformed AtPathologist SignatureTBH WBC8.14.0 - 11.0 10 3/uLTBHTBH RBC3.76(L)4.20 - 5.40 10 6/uLTBHTBH HGB11.1(L)12.0 - 16.0 g/dLTBHTBH HCT32.8(L)36.0 - 48.0 %TBHTBH MCV87.281.0 - 99.0 fLTBHTBH MCH29.5 26.7 - 34.0 pgTBHTBH MCHC33.829.9 - 35.2 g/dLTBHTBH RDW12.111.0 - 15.0 %TBHTBH [id number] - 450 10 3/uLTBHTBH MPV10.39.5 - 13.5 [...] Team MemberRelationshipSpecialtyStart DateEnd Date Anthony Stauffer MD [address] [place] [address], [address] [place] [address] PCP - GeneralFamily Medicine12/08/24
[2025-06-08 19:44] VITALS: BP 116/59; PULSE 85
[2025-06-08 19:59] LABS: Glucose Urine UA NEGATIVE (NEGATIVE)
== END 2025-06-08 22:15 | disposition home or self-care (01) ==
LOC: FBCO 18:59 → FBC 19:04
PROVIDERS: PCP Internal Medicine; Visit Provider Obstetrics & Gynecology
DX: O41.93X1 Disorder of amniotic fluid and membranes, unspecified, third trimester, fetus 1 (principal); Z3A.37 37 weeks gestation of pregnancy
CPT/HCPCS: 81003; 84112